=== PATIENT | female | born 1955 | race Caucasian/White ===

== ENCOUNTER → 2016-08-14 | Outpatient (CLI) | payer OTHER ==
[~2016-08-14] MED LIST: ACET-1138 PO; ALBINS/ INH; ALBUAER INH; ALBUAER2 INH; ASCA500 PO; ASCO-63 PO; ASPEC81 PO; ASPI81TA28 PO; ATOR10TA88 PO; CETITAB27 PO; CHOL100027 PO; CLC100 PO; CLIN300C2 PO; CRFL PO; CYAN100020 PO; DOCU100C31 PO; HYDR-5688 PO; MISC4CAP PO; NAPR1TAB9 PO; OXYC-57 PO; PSYL55.43 PO; PSYL58.636 PO; RXC5 PO; SALI0.6510 NAE; SNK PO; SUCR1TAB29 PO; TAMO20TA47 PO; TRIA1SPR4 NAE; TRMCR130WC TOP; VALA500T60 PO; VITA1CAP5 PO; VITA1TAB4 PO
--- NOTE | 2016-08-18 13:48 | MAMMOGRAPHY REPORT ---
BILATERAL DIGITAL SCREENING MAMMOGRAM TOMOSYNTHESIS WITH CAD: 08/14/2016 CLINICAL HISTORY: Routine screening. Patient has no complaints. Sister with breast cancer. TECHNIQUE: Breast tomosynthesis in addition to standard 2D mammography was performed. Current study was also evaluated with a Computer Aided Detection (CAD) system. COMPARISON: Comparison is made to exams dated: 02/01/2014 mammogram - [facility], 03/22/2015 [facility], 12/23/2012 mammogram, 12/19/2011 mammogram, 10/21/2010 mammogram, and 10/19/2009 mammogram - [facility]. BREAST COMPOSITION: There are scattered areas of fibroglandular density in both breasts. FINDINGS: There are possible grouped calcifications seen within the right upper outer quadrant, for which spot magnification views and right XCCL views are recommended for further evaluation. There is architectural distortion seen within the right 12:00 breast which appears stable compared to prio r exams and likely represents post surgical changes. Recommend correlation with surgical history at the time of the diagnostic workup. The remainder of both breasts are stable compared to prior exams, without suspicious masses, calcifi cations, or areas of architectural distortion noted. IMPRESSION: ACR BI-RADS CATEGORY 0: INCOMPLETE EVALUATION: NEED ADDITIONAL IMAGING EVALUATION Right upper outer quadrant calcifications, for which additional imaging evaluation is recommended. At the time of the diagnostic workup, recommend correlation with any surgical history which could ac count for right breast architectural distortion. The patient will be called to schedule an appointment. Approximately 10% of breast cancers are not detected with mammography. A negative mammographic repor t should not delay biopsy if a clinically suggestive mass is present. Juana Bansal M.D. ah/:08/14/2016 16:51:51 Program Professional: Patsy CASTILLO,R, M, [facility] letter sent: Addl Imaging 0 BI-RADS Code: ACR BI-RADS Category 0: Incomplete Evaluation: Need Additional Imaging Evaluation
== END | disposition home or self-care (01) ==
LOC: C.MAMM 12:13
PROVIDERS: ATTEND Internal Medicine
DX: Z12.31 Encounter for screening mammogram for malignant neoplasm of breast (principal); R92.1 Mammographic calcification found on diagnostic imaging of breast

== ENCOUNTER → 2016-09-03 | Outpatient (CLI) | payer OTHER ==
--- NOTE | 2016-09-03 12:32 | MAMMOGRAPHY REPORT ---
UNILATERAL RIGHT DIGITAL DIAGNOSTIC MAMMOGRAM: 09/03/2016 CLINICAL HISTORY: 61-year-old woman called back from screening mammography for a possible cluster of microcalcifications in the right upper outer quadrant. History of prior benign surgical biopsy in the right breast for which a 4 cm scar is visualized along the superior aspect of the right breast a pproximate 11 through 1:00 axes. TECHNIQUE: Spot magnification right CC and ML views were obtained. COMPARISON: Comparison is made to exams dated: 08/14/2016 mammogram, 03/22/2015 mammogram - [facility], 02/01/2014 mammogram - [facility], 12/23/2012 mammogram, 12/19/2011 mammogram, and 10/21/2010 mammogram - [facility]. BREAST COMPOSITION: There are scattered areas of fibroglandular density in the right breast. FINDINGS: There are a few scattered benign-appearing round and coarse calcifications in the visuali zed right breast. However, there is an 8 mm cluster of very faint punctate and amorphous microcalci fications in the upper outer posterior right breast that appears new compared to prior available fern mograms. This is indeterminate, warranting further evaluation with tissue sampling. No obvious ass ociated mass or unexpected architectural distortion. No other suspicious microcalcifications are id entified. There is expected architectural distortion in the 12:00 right breast, which appears simil ar on all available prior mammograms, and is compatible with postsurgical scarring. IMPRESSION: ACR BI-RADS CATEGORY 4B: INTERMEDIATE SUSPICION FOR MALIGNANCY 1. Right breast stereotactic guided biopsy is recommended for an 8 mm cluster of very faint punctat e and amorphous microcalcifications in the upper outer posterior breast. 2. Architectural distortion in the 12:00 right breast correlates with a surgical scar visible on th e skin in the 12:00 right breast and is compatible with postsurgical scarring. No further imaging w orkup is needed regarding this finding. These results and recommendations were discussed with the patient at the time of the exam. She tent atively scheduled the right breast stereotactic biopsy prior to leaving our department. Approximately 10% of breast cancers are not detected with mammography. A negative mammographic repor t should not delay biopsy if a clinically suggestive mass is present. Gretta Mullins M.D. ay/:09/03/2016 10:38:19 Appeals Analyst: Nissa Fabian RT(R)(M), [facility] letter sent: Abnormal 09/17 BI-RADS Code: ACR BI-RADS Category 4B: Intermediate Suspicion For Malignancy
== END | disposition home or self-care (01) ==
LOC: C.MAMM 08:33
PROVIDERS: ATTEND Physician Assistant
DX: R92.0 Mammographic microcalcification found on diagnostic imaging of breast (principal)

== ENCOUNTER → 2016-09-10 | Outpatient (CLI) | payer OTHER ==
[~2016-09-10] MED LIST changes: +ATOR10TA82 PO; -ATOR10TA88 PO; -TAMO20TA47 PO; +TAMO20TA9 PO
--- NOTE | 2016-09-10 13:40 | Discharge Instructions ---
Discharge Instructions Procedure Procedure Date: Sep 10, 2016. Reason for visit: Right Calcs. Discharge Discharge Date: Sep 10, 2016. Discharge Diagnosis: post right breast stereotactic guided biopsy Medications Restart Stopped Medication(s): May restart Aspirin tonight as long as not bleeding through bandages Instructions Activity Recommendations: Additional Limitations (see below) Return to School/Work: no limitations Recommended Home Diet: No Limitations Provider Instructions: ACTIVITY RECOMMENDATIONS: * No lifting, pushing, pulling or exercising the affected side for three days. RETURN TO SCHOOL/WORK: * You may return to work/school after the procedure, but do not perform any strenuous activities for 24 to 48 hours. MEDICATIONS: * Tylenol (two 325 mg) every four to six hours if needed for mild pain (if not allergic to Tylenol). DIET: * Resume previous diet. SPECIAL CARE INSTRUCTIONS: * Keep biopsy site dry for 24 hours. May shower after 24 hours, but do not soak (bathe) incision. * May remove Tegaderm (plastic patch) tomorrow AFTER showering. * Leave the steri-strips on for one week. Allow the steri-strips to fall off by themselves. If not off after one week, you may remove them. You may place a Bandaid crosswise over the strips, if desired. * Apply ice 10 minutes on and 10 minutes off as needed. * Wear a bra at bedtime to sleep more comfortably for 2-3 days. * Your referring physician should have the results after approximately 5 to 7 business days. * Call for unusual bleeding, fever, drainage, etc or if you have any questions call [phone] during normal business hours or after hours call Dr Mullins, . FOLLOW UP VISIT: Follow-up with Referring Physician as scheduled. Allergies Coded Allergies: Astemizole (Verified Allergy, Unknown, 09/19/15) Loratadine (Verified Allergy, Unknown, 10/22/15) Penicillins (Verified Allergy, Unknown, 10/22/15) Sulfa Drugs (Verified Allergy, Unknown, 10/22/15) Sulfamethoxazole (Verified Allergy, Unknown, 10/22/15) Terfenadine (Verified Allergy, Unknown, 09/19/15) Statins (Unverified Adverse Reaction, Unknown, leg cramps, 10/22/15) [place] Recommendations: Call your doctor if: * Temperature above 101 degrees * Pain not relieved by pain medicine ordered * There is increased drainage or redness from any incision * You have any unanswered questions or concerns. Your Doctors Instructions noted above were prepared by provider Gretta Mullins. Patient Signature Section: Patient Instructions Signature Page Tamara Patrick Patient (or Guardian) Signature/Date: I have read and understand the instructions given to me by my caregivers. Caregiver/RN/Doctor Signature/Date: The above-named patient and/or guardian has received patient instructions on this date. + Original Patient Signature Page (only) stays with chart. Please make copy for patient.
--- NOTE | 2016-09-10 15:56 | MAMMOGRAPHY REPORT ---
THIS REPORT HAS BEEN AMENDED. STEREOTACTIC GUIDED BIOPSY RIGHT BREAST: 09/10/2016 CLINICAL HISTORY: Faint indeterminate clustered microcalcifications in the approximate 9:00 posterio r right breast. Patient presented for stereotactic guided biopsy. COMPARISON: Comparison is made to exams dated: 08/14/2016 mammogram, 03/22/2015 mammogram - [facility], 02/01/2014 mammogram - [facility], and 12/23/2012 mammogram - [facility]. PATIENT CONSENT: After explaining the risks, benefits and alternatives of the procedure to the patie nt, informed consent was obtained both verbally and in writing. Specific risks include: Bleeding, i nfection, puncture of adjacent structure, nontarget biopsy, sampling error, metal allergy and medica tion reaction. PROCEDURE DESCRIPTION: A time-out was performed and the right breast was confirmed as the site of bi opsy. The patient was placed prone on the stereotactic biopsy table and the breast was placed in lat eralmedial compression. A cuff turner machine operator image was obtained that demonstrated the clustered microcalcificati ons in question. They are amenable to sterotactic biopsy. Then +15 and -15 stereo pair images wer e obtained. The calcifications were targeted utilizing the coordinates obtained by the computer. Th e skin was prepped with Betadine. 1% Lidocaine with and without epinipherine was administered as loc al anesthesia. A small skin incision was made. Through the incision, the needle was inserted to the depth determined by the computer. 12 samples were obtained using a [employer] 9-gauge vacuum-vidal diego biopsy device. The specimen radiograph demonstrated several maintenance representative microcalcifications, therefore, a metallic marker was placed at the biopsy site. There was no immediate complication. Hem ostasis was achieved after several minutes of manual compression. The samples were sent to [facility] in a single appropriately labeled container. Nearly all of the core tissue samples contained calc ifications and therefore they were not out. Postprocedure CC and ML views of the right breast demonstrate a new dumbbell-shaped metallic biopsy marker and no significant hematoma in the 9:00 posterior breast, at the site of the biopsied cluster ed microcalcifications in question. IMPRESSION: STEREOTACTIC GUIDED BIOPSY Status post right breast stereotactic guided biopsy of a faint clustered microcalcifications in the proximal 9:00 posterior breast, with biopsy marker placed at the site. The patient will receive notification of the biopsy results from her referring physician. Gretta Mullins M.D. ay/:09/10/2016 13:56:32 Package Liner: Nissa METCALF)(Manuel), [facility] AMENDMENT: 09/17/2016 Gretta Mullins M.D. 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 Infiltrative carcinoma is not seen. The ductal carcinoma in situ is estrogen receptor positive progesterone receptor negative. The ductal carcinoma in situ is multifocally dist ributed in this tissue and the aggregate dimension of the multiple foci is 0.5 cm. Pathology result s are concordant with the imaging appearance. However, a contrast-enhanced bilateral breast MRI is recommended prior to definitive treatment becau se of the very faint nature of the microcalcifications, it could be difficult to fully assess extent of disease. Also, there is an area of architectural distortion in the posterior right breast along the posterior nipple line on the CC view, that was thought to project superiorly on the MLO view an d correlate with a area of prior surgery. However an MRI will also be useful to reassess this area and exclude any abnormal enhancement as opposed to nonenhancing fibrotic tissue in this location.
--- NOTE | 2016-09-10 15:56 | MAMMOGRAPHY REPORT ---
UNILATERAL RIGHT DIGITAL DIAGNOSTIC MAMMOGRAM: 09/10/2016 CLINICAL HISTORY: Status post stereotactic guided biopsy of faint clustered microcalcifications in t he lateral posterior right breast. Please refer to the report from right breast stereotactic guided biopsy performed at the same time f or full detail. IMPRESSION: POST PROCEDURE IMAGING FOR MARKER PLACEMENT Please refer to the report from right breast stereotactic guided biopsy performed at the same time f or full detail. Approximately 10% of breast cancers are not detected with mammography. A negative mammographic repor t should not delay biopsy if a clinically suggestive mass is present. Gretta Mullins M.D. ay/:09/10/2016 13:42:17 Environmental Director: Nissa CASTILLO(R)(M), [facility] BI-RADS Code: Post Procedure Imaging For Marker Placement
== END | disposition home or self-care (01) ==
LOC: C.MAMM 12:30
PROVIDERS: ATTEND Physician Assistant
DX: R92.0 Mammographic microcalcification found on diagnostic imaging of breast (principal); D05.81 Other specified type of carcinoma in situ of right breast

== ENCOUNTER 2016-11-15 19:31 | Emergency (ER) | payer OTHER ==
[~2016-11-15] VITALS: Ht 162.6 cm; Wt 80.1 kg
[~2016-11-15 19:31] MED LIST changes: -ALBINS/ INH; -ALBUAER INH; -ASCO-63 PO; -ASPI81TA28 PO; -ATOR10TA82 PO; -CLIN300C2 PO; -CRFL PO; -DOCU100C31 PO; -HYDR-5688 PO; -NAPR1TAB9 PO; -OXYC-57 PO; -PSYL58.636 PO; -SALI0.6510 NAE; -TAMO20TA9 PO; -TRIA1SPR4 NAE; -TRMCR130WC TOP; -VALA500T60 PO; -VITA1TAB4 PO
[2016-11-15 19:39] VITALS: TEMP 36.4; Ht 162.6 cm; Wt 80.1 kg
[2016-11-15] MEDS ORDERED: ONDANSETRON INJ 2 MG/ML 2 ML VIAL IV STA (19:52)
[2016-11-15] MEDS ORDERED: MoRPHine SULFATE 10 MG/ML CARP/VIAL IV STA (19:52)
[2016-11-15] MEDS ORDERED: BUPIVACAINE 0.5 % 5 MG/1 ML MPF 30ML VIAL INFIL ONE (20:00)
[2016-11-15] MEDS ORDERED: XYLOCAINE 1%/SOD BICARB 20 ML VIAL INFIL ONE (20:00)
[2016-11-15] MEDS ORDERED: CLINDAMYCIN IV 900 MG in DEXTROSE 5% ADD-VANTAGE 100ML 100 ML IV ONE (20:00)
[2016-11-15] MEDS ORDERED: DOCU100C31 PO (20:25)
[2016-11-15] MEDS ORDERED: ASPI81TA28 PO (20:26)
[2016-11-15] MEDS ORDERED: PSYL58.636 PO (20:26)
[2016-11-15] MEDS ORDERED: OXYC-57 PO (20:26)
[2016-11-15] MEDS ORDERED: VITA1TAB4 PO (20:26)
[2016-11-15] MEDS ORDERED: CLIN300C2 PO (21:31)
[2016-11-15] MEDS ORDERED: HYDR-5688 PO (21:36)
--- NOTE | 2016-11-15 21:37 | EMERGENCY ROOM VISIT NOTE ---
ED Visit Note First contact with patient: 19:42 CHIEF COMPLAINT: Finger injury HISTORY OF PRESENT ILLNESS: This 61-year-old female patient presents to the emergency department ambulatory after injuring the right fourth finger a few hours ago. The patient states that she caught the finger caught between the boat and pier. The patient rates the pain as sharp and 10/10. The patient has full range of motion of the finger. No numbness or tingling. There is a laceration to the tip of the finger. The patient has not had previous fracture to this finger. The patient has taken no medication for the pain. She was seen at [facility] and sent here. REVIEW OF SYSTEMS: A 6 system review of systems was completed with positives and pertinent negatives in the HPI. ALLERGIES: See EMR MEDICATIONS: See med list, reviewed with patient PMH: Recent lumpectomy secondary to breast cancer SOCIAL HISTORY: The patient lives locally with family. PHYSICAL EXAM: Vital Signs: Reviewed Nurse's notes, vital signs stable. GENERAL : This is a 61-year-old female, in no acute distress, but appears to be in pain , well-developed, well-nourished. MUSCULOSKELETAL: There is a 2.5 cm curved laceration to the finger pad of the right fourth finger. This keeps apart with pressure. There is mild active bleeding. Capillary refill within 2 seconds. Full range of motion of the finger. No tenderness of the remaining fingers or hand. Full range of motion of the wrist. NEURO: Alert and oriented to person, place, and time. Normal sensation to light and sharp touch. RADIOGRAPHIC FINDINGS: X-rays by [facility] reviewed by myself and reveal a small distal tuft fracture of the right fourth finger. PROCEDURE: Verbal consent was obtained to perform the procedure. Using sterile technique the wound was cleaned with Betadine. The area was sterilely draped. 6 ml of a 1-1 solution of 1% buffered lidocaine and 0.5% Marcaine was used to perform a digital block to anesthetize the finger. Once the patient was anesthetized, the wound was copiously irrigated under pressure with sterile saline. The wound was explored and there were no deep structures injured such as tendons, bone, or significant blood vessels. The laceration was repaired using 7 simple interrupted 5-0 nylon sutures with the wound edges being well approximated. The patient tolerated the procedure well. Hemostasis was achieved. The area was cleaned with sterile saline and dressed with bacitracin ointment and bandage. EMERGENCY DEPARTMENT COURSE: I examined the patient. X-rays performed at [facility] were reviewed. IV access was obtained and the patient was given 6 mg morphine IV. She was reevaluated and felt much better. Laceration repair was performed as noted in the procedure section. She was given IV clindamycin and will be placed on clindamycin at home. I discussed the case with Dr. Tsang, who recommended follow-up with orthopedics in the office this week. The patient was placed in a metal cage splint. Conservative measures were discussed. She verbalized understanding of my assessment and treatment plan and was discharged home in good condition. DIAGNOSIS: Finger laceration, distal tuft fracture Problem List Medical Problems: (1) Asthma, mild persistent Status: Chronic (2) Deviated nasal septum Status: Chronic (3) Dyslipidemia Status: Chronic (4) Fibromyalgia Status: Chronic (5) GERD (gastroesophageal reflux disease) Status: Chronic (6) IBS (irritable bowel syndrome) Status: Chronic (7) Non-allergic rhinitis Status: Chronic (8) MARTY (obstructive sleep apnea) Status: Chronic (9) Urge incontinence Status: Chronic Surgical Problems: (1) H/O exploratory laparotomy Permanent Comment: 2008 Status: Resolved (2) H/O: knee surgery Permanent Comment: L knee; remove med/lateral cartilage performed by 2010 Status: Resolved (3) History of appendectomy Status: Resolved (4) History of section Status: Resolved (5) History of cholecystectomy Status: Resolved (6) History of hysterectomy Permanent Comment: 1 ovary remains; 1994 Status: Resolved (7) History of tonsillectomy and adenoidectomy Status: Resolved Current/Historical Medications Scheduled Aspirin (Aspirin Ec), 81 MG PO DAILY Cholecalciferol (Vitamin D 1000 Unit), 1,000 INTER.UNIT PO QAM Clindamycin Hcl (Cleocin), 300 MG PO QID Cyanocobalamin (Vitamin B12), 2,000 MCG PO DAILY Docusate Sodium (Docusate Sodium), 200 MG PO QAM Probiotic Product (Align), 4 MG PO QAM Psyllium (Metamucil Fiber), 1 PKT PEG Q2D Vitamin E (Vitamin E), 400 INTER.UNIT PO DAILY Scheduled PRN Hydrocodone/Acetaminophen 5MG/325MG (Udell 5MG/325MG), 1-2 TABLET PO Q4H PRN for Pain Oxycodone/Acetaminophen 5MG/325MG (Percocet 5MG/325MG), 1 TABLET PO Q4H PRN for Pain Allergies Coded Allergies: Astemizole (Verified Allergy, Unknown, 09/19/15) Loratadine (Verified Allergy, Unknown, 10/22/15) Penicillins (Verified Allergy, Unknown, 10/22/15) Sulfa Drugs (Verified Allergy, Unknown, 10/22/15) Sulfamethoxazole (Verified Allergy, Unknown, 10/22/15) Terfenadine (Verified Allergy, Unknown, 09/19/15) Statins (Unverified Adverse Reaction, Unknown, leg cramps, 10/22/15) Vital Signs Date Time Temp Pulse Resp B/P (MAP) Pulse Ox O2 Delivery O2 Flow Rate FiO2 11/15/16 21:51 69 16 126/87 98 11/15/16 19:39 36.4 70 18 161/88 99 Room Air Medications Administered Medications (Trade) Dose Ordered Sig/Viri Route Start Time Stop Time Status Last Admin Dose Admin Clindamycin Phosphate 900 mg/ Dextrose 106 ml @ 100 mls/hr ONE ONCE IV 11/15/16 20:00 11/15/16 21:03 DC 11/15/16 20:15 100 MLS/HR Morphine Sulfate (MoRPHine SULFATE INJ) 6 mg NOW STAT IV 11/15/16 19:52 11/15/16 19:55 DC 11/15/16 20:15 6 MG Ondansetron HCl (Zofran Inj) 4 mg NOW STAT IV 11/15/16 19:52 11/15/16 19:55 DC 11/15/16 20:15 4 MG Departure Information Impression Primary Impression: Finger laceration Additional Impression: Open fracture of distal phalangeal tuft Dispostion Home / Self-Care Condition GOOD Prescriptions Hydrocodone/Acetaminophen 5MG/325MG (Udell 5MG/325MG) Tab 1-2 TABLET PO Q4H Y for Pain, #10 TAB For Initial Treatment Prov: Lisa Zavala PA-C 11/15/16 Clindamycin Hcl (CLEOCIN) 300 Mg Cap 300 MG PO QID for 7 Days, #28 CAP Prov: Lisa Zavala PA-C 11/15/16 Referrals Tressa Arenas (PCP) Angelo Tsang D.O. Patient Instructions My [facility] Additional Instructions For pain control, you can use the following [id number] medicines (if >12 yo): - Regular strength (325mg/tab) Tylenol (acetaminophen) 2 tabs every 4-6 hours as needed. Do not exceed 12 tablets in a 24 hour period. Avoid taking more than 4 grams (4000 mg) of Tylenol per day. This includes any other sources of acetaminophen you may take on a regular basis. - Regular strength (200 mg/tab) Advil (ibuprofen) 1-2 tabs every 4-6 hours as needed. Do not exceed a dose of 3200 mg per day. You have been prescribed Udell to be used for pain control. Take 1-2 tablets every 4-6 hours as needed for pain. This is a narcotic medication. You cannot drive or consume alcohol while on this medicine. This medicine should only be used for pain that cannot be controlled with [id number] pain medicines. You were prescribed clindamycin to be taken 4 times daily. This is an antibiotic. All antibiotics have the potential to cause diarrhea. Stop this medication and contact a medical provider if you were to develop any significant adverse side effects including: wheezing, shortness of breath, passing out, vomiting, or a diffuse rash. Always take antibiotics as directed and COMPLETE the ENTIRE course regardless of the improvement of your symptoms. Proper wound care is essential for adequate wound healing and infection prevention. You can shower and clean the wound with soap and water. Do not scour over the wound, pat dry with a towel. Do not submerse the wound (i.e. bathe or dish wash) until the wound has fully healed. You can use an antibiotic ointment with a dressing over the wound for the next 3-4 days. After this time you may leave the wound dry and open to the air. Follow-up with orthopedics. Call them for appointment. Return to the emergency department with any worsening redness, or swelling swelling or signs of infection. Problem Qualifiers Primary Impression: Finger laceration Encounter type: initial encounter Finger: ring finger Damage to nail status : without damage Foreign body presence: without foreign body Laterality: right Qualified Codes: S61.214A - Laceration without foreign body of right ring finger without damage to nail, initial encounter
[2016-11-15 21:51] VITALS: BP 126/87; PULSE 69; O2SAT 98
[2017-01-01] MEDS ORDERED: CRFL PO (09:45)
[2017-01-01] MEDS ORDERED: ALBINS/ INH (09:45)
[2017-01-01] MEDS ORDERED: TRMCR130WC TOP (09:45)
[2017-01-01] MEDS ORDERED: NAPR1TAB9 PO (09:45)
[2017-01-01] MEDS ORDERED: ASCO-63 PO (09:45)
[2017-01-01] MEDS ORDERED: SALI0.6510 NAE (09:45)
[2017-01-01] MEDS ORDERED: ALBUAER INH (09:45)
[2017-01-01] MEDS ORDERED: VALA500T60 PO (09:45)
[2017-01-01] MEDS ORDERED: TRIA1SPR4 NAE (09:45)
[2017-01-01] MEDS ORDERED: CETITAB27 PO (09:45)
[2017-03-11] MEDS ORDERED: ATOR10TA82 PO (14:42)
[2017-03-11] MEDS ORDERED: TAMO20TA9 PO (14:42)
== END 2016-11-15 20:45 | disposition home or self-care (01) ==
LOC: C.EDB 19:32 → C.EDD 20:45
DX: S62.664B Nondisplaced fracture of distal phalanx of right ring finger, initial encounter for open fracture (principal); S61.214A Laceration without foreign body of right ring finger without damage to nail, initial encounter; W23.0XXA Caught, crushed, jammed, or pinched between moving objects, initial encounter; Y92.89 Other specified places as the place of occurrence of the external cause; Z85.3 Personal history of malignant neoplasm of breast; J45.909 Unspecified asthma, uncomplicated; E78.5 Hyperlipidemia, unspecified; M79.7 Fibromyalgia; K21.9 Gastro-esophageal reflux disease without esophagitis; K58.9 Irritable bowel syndrome, unspecified; G47.33 Obstructive sleep apnea (adult) (pediatric); Z79.82 Long term (current) use of aspirin; Z79.899 Other long term (current) drug therapy

== ENCOUNTER → 2017-08-25 | Outpatient (CLI) | payer OTHER ==
[~2017-08-25] MED LIST changes: -ACET-1138 PO; +ALBINS/ INH; +ALBUAER INH; -ALBUAER2 INH; -ASCA500 PO; +ASCO-63 PO; -ASPEC81 PO; +ASPI81TA28 PO; +ATOR10TA82 PO; -CLC100 PO; +CRFL PO; +DOCU100C31 PO; +NAPR1TAB9 PO; +PRVC/40; -PSYL55.43 PO; +PSYL58.636 PO; -RXC5 PO; +SALI0.6510 NAE; -SNK PO; -SUCR1TAB29 PO; +TAMO20TA9 PO; +TRIA1SPR4 NAE; +TRMCR130WC TOP; +VALA500T60 PO; -VITA1CAP5 PO; +VITA400C3 PO
[2017-08-25 13:22] VITALS: BP 113/63; PULSE 54; TEMP 36.4; O2SAT 98
--- NOTE | 2017-08-25 15:43 | Radiation Oncology Follow-Up ---
Radiation Oncology Follow-Up Date of Visit Aug 25, 2017. Reason For Visit Six-month follow-up Radiation Completion Date 02/03/17 Diagnosis (1) Intraductal cancer of right breast Status: Resolved Onset Date: 09/10/2016 Stage: 0 Permanent Comment: Abnormal right breast mammogram Status post stereotactic biopsy revealing DCIS grade 2 Estrogen receptor positive and progesterone receptor negative Status post needle localization lumpectomy 11/12/2016 Status post reexcision 12/15/2016 Stage pTis pNX Status post completion of radiation therapy 02/03/2017. She received 3850 cGy utilizing accelerated partial breast irradiation. Last Edited By: Padmini Cárdenas on Feb 11, 2017 11:35 History of Present Illness Ms. Patrick has a history of breast cancer in her family. Her sister was diagnosed with a rectal cancer 4 years ago and in June of this year developed respiratory symptoms. 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 A PET scan also showed evidence of disease in the breast and she was found to have a breast cancer. The patient was scheduled for a screening mammogram last year in March 2016 but this was delayed until August 2016.. On 08/14/2016 bilateral digital screening mammogram revealed possible grouped calcifications seen within the right upper outer quadrant. Spot magnification views were recommended for further evaluation. On 09/03/2016 patient underwent a unilateral right digital diagnostic mammogram. This revealed an 8 mm cluster of very faint punctate and amorphous microcalcifications in the upper outer posterior right breast that appear to be new compared to her prior available mammograms. This was indeterminate warranting further evaluation and tissue sampling. No obvious associated mass around his expected architectural distortion was noted. No other suspicious microcalcifications were identified. There was expected architectural distortion in the 12 o'clock position of the right breast which appears similar to prior mammograms and is compatible with postsurgical scarring. The patient had undergone a needle localization biopsy of the right breast on 10/21/2004. This showed benign changes with no evidence of malignancy. Specimen #[id number]. On 09/10/2016 the patient underwent a stereotactic guided right lateral breast biopsy. In aggregate multiple foci of ductal carcinoma in situ, intermediate grade was noted measuring 0.5 cm in aggregate dimension. This was consistent with a DCIS intermediate grade with necrosis present. Estrogen receptors were positive, progesterone receptors were negative. Case: [id number]. Patient was seen by Dr. Mirella Acevedo to discuss surgical treatment options. She recommended rest MRI to assess the extent of the disease. This was performed on 09/29/2016. This showed a 2 cm area of linear enhancement extending posteriorly to the biopsy clip for a length of 2 cm. A repeat MRI was suggested to follow-up bilateral nonspecific foci. An addendum was added on 11/07/2016 which revealed a MRI BI-RADS Category 6 of the left breast for the known carcinoma and an MRI BI-RADS Category 3 of the right breast probably benign. The patient agreed to proceed with a breast conserving therapy. The patient was scheduled for a right breast needle localization lumpectomy on 11/12. This confirmed residual ductal carcinoma in situ with nuclear grade 2 cribriform and solid type measuring 4 mm. The disease was multifocal. The surgical margins were negative with the inferior margin being the closest margin at 1 mm. There was no necrosis. There were associated microcalcifications. Estrogen receptors were +100% with strong nuclear staining and progesterone receptors were positive with 30% weak nuclear staining. The patient was scheduled for a reexcision of the close margin that was performed on 12/15/2016. Tissue from the inferior margin showed residual ductal carcinoma in situ with nuclear grade 2 solid type area at the final margin was negative with the nearest margin 2 mm. Patient was seen by Dr. Zachery Rosenthal to discuss the role of adjuvant systemic therapy. He noted that the patient had been on estrogen replacement therapy for about a decade following a hysterectomy in the for endometriosis and menorrhagia. He discussed adjuvant radiation to be followed by consideration of adjuvant hormonal therapy. He therefore suggested consideration of an AI with the possibility of switching to tamoxifen if she experienced excessive toxicity. With a recent history of breast cancer in her sister and a maternal aunt with breast cancer diagnosed in her 40s she was felt to be a candidate for genetic testing and has been referred to the genetic counseling at [facility] with an appointment in February. We were therefore asked to see the patient in referral to discuss with her the role of adjuvant radiation. She underwent a CT simulation and was found to be a candidate for accelerated partial breast treatment. This was completed on 02/03/2017. She received 3850 cGy Interim History She had been placed on tamoxifen. She recently stopped the medication on her own. She stated that she was having dizziness. She was also having problems with ear discomfort. She was seen by ENT. After stopping the medication the dizziness has resolved. She also was having a discomfort in her right central arm that radiated to the middle of the upper arm. There was an area of swelling. This was tender to touch. The discomfort radiated towards the axilla. She is up-to-date on mammography. Allergies Coded Allergies: Astemizole (Verified Allergy, Unknown, 09/19/15) Cefuroxime (Verified Allergy, Unknown, Unknown, 01/01/17) Colestipol (Verified Allergy, Unknown, Leg cramps, 01/01/17) Fexofenadine (Verified Allergy, Unknown, Tachycardia, 01/01/17) Levofloxacin (Verified Allergy, Unknown, Jittery, 01/01/17) Loratadine (Verified Allergy, Unknown, 10/22/15) Niacin (Verified Allergy, Unknown, Leg cramps, 01/01/17) Penicillins (Verified Allergy, Unknown, edema of face, tongue, and lips. Rash, 01/01/17) Sulfa Drugs (Verified Allergy, Unknown, Rash, 01/01/17) Sulfamethoxazole (Verified Allergy, Unknown, Rash, 01/01/17) Terfenadine (Verified Allergy, Unknown, 09/19/15) Statins (Unverified Adverse Reaction, Unknown, leg cramps, 10/22/15) Home Medications Scheduled Ascorbic Acid (Vitamin C), 1 TAB PO DAILY Aspirin (Aspirin Ec), 81 MG PO DAILY Cetirizine/Pseudoephedrine (Zyrtec-D Er 5MG/120MG), 1 TAB PO DAILY Cholecalciferol (Vitamin D 1000 Unit), 1,000 INTER.UNIT PO QAM Cyanocobalamin (Vitamin B12), 500 MCG PO DAILY Docusate Sodium (Docusate Sodium), 2 CAP PO DAILY Pravastatin Sod (Pravastatin Sodium), 10 MG mon-FRi Probiotic Product (Align), 4 MG PO QAM Psyllium (Metamucil Fiber), 1 CAP PO Q2D Triamcinolone Acetonide (Nasal (Nasacort Allergy 24Hr), 1 SPRAY PHILIPPE DAILY Valacyclovir (Valtrex), 2 TABS PO DIRECTED Vitamin E (Vitamin E 400 Iu), 400 INTER.UNIT PO DAILY Scheduled PRN Albuterol Sulf (Proventil 0.083% 2.5MG/3ML), 2.5 MG INH Q4 PRN for SOB/Wheezing Albuterol Sulfate (Proventil Hfa), 2 PUFFS INH Q4 PRN for SOB/Wheezing Naproxen (Aleve), 220 MG PO BID PRN for Moderate Pain Saline ([employer] Nasal [place]), 1 SPRAY PHILIPPE BID PRN for DRYNESS Triamcinolone Acet (Aristocort 0.1%), 1 APPLN TOP BID PRN for Affected Skin Folds Review of Systems Gastrointestinal: Symptoms: WNL GI Comments: no prob at present had constipation while on tamoxifen Oral: Symptoms: No Problems Respiratory: Symptoms: Dry Cough, SOB With Exertion Other Respiratory: patient noted she experienced wheezing on 08/22/17 no prob at present Urinary: Symptoms: WNL Skin: Other Skin Symptoms: occ pruritis right breast uses natural care gel which helps Breast: Right Upper Arm Measurement: 33.6 Right Mid Arm Measurement: 24.6 Right Wrist Measurement: 15.4 Left Upper Arm Measurement: 31.2 Left Mid Arm Measurement: 23.5 Left Wrist Measurement: 14.8 Arm Dominence: Right Patient Cosmetic Evaluation: Good Staff Cosmetic Evalaluation: Good Physical Exam Vital Signs Date Time Temp Pulse Resp B/P (MAP) Pulse Ox O2 Delivery O2 Flow Rate FiO2 08/25/17 13:22 36.4 54 16 113/63 98 Fatigue: None General Appearance: no apparent distress Eyes: normal inspection, EOMI ENT: normal ENT inspection, hearing grossly normal Neck: no adenopathy, thyroid normal Respiratory/Chest: lungs clear, no respiratory distress, no accessory muscle use Breast: Breast examination reveals well-healed incision of the right breast. There are no masses or tenderness and no axillary adenopathy. She has no skin retractions or nipple changes. Using the Esparto score of cosmesis she has an excellent outcome. The left breast showed no masses or tenderness and no axillary adenopathy. Cardiovascular: regular rate, rhythm, no gallop, no murmur Extremities: + pertinent finding (There is tenderness to palpation of the right antecubital space. She also has tenderness of the upper inner aspect of the right arm. There is no erythema. ) Neurologic/Psychiatric: no motor/sensory deficits, alert, normal mood/affect Skin: warm/dry Pain Management Patient Reports Pain: Yes Side: Right Patient Preferred Pain Scale: 0 - 10 Initial Pain Intensity: 3.0 Pain Management Plan Discomfort is in the upper inner portion of the right arm. Laboratory Laboratory Results: not applicable Pathology Pathology Results: and pertinent findings noted in HPI Imaging Imaging Studies: and pertinent findings noted in HPI, pending (A stat venous Doppler has been ordered for the right upper extremity.) Imaging Comments Patient: IVELISSE PATRICK [facility] Rec: [id number] Address1: [address] Address2: Acct ID: [id number] Date: 1955 Sex: F Ref Phy: Tressa ArenasN.PNile Att Phy: Jessica Medina PA-C Jessica Phy: Tressa Arenas Inter Phy: Gretta Mullins MD [facility] Zip: [place] [id number] SC: [place] Report #: [id number] Forest Fire Prevention Manager: JENNYFER Diagnosis: RIGHT CALCS Service Date: 09/10/16 MNE: [id number] Ordering Dr: Jessica Medina PA-C CC: Jessica Medina PA-C CONF: DICTATED BY: Gretta Mullins MD MAMMOGRAPHY REPORT UNILATERAL RIGHT DIGITAL DIAGNOSTIC MAMMOGRAM: 09/10/2016 CLINICAL HISTORY: Status post stereotactic guided biopsy of faint clustered microcalcifications in the lateral posterior right breast. Please refer to the report from right breast stereotactic guided biopsy performed at the same time for full detail. IMPRESSION: POST PROCEDURE IMAGING FOR MARKER PLACEMENT Please refer to the report from right breast stereotactic guided biopsy performed at the same time for full detail. Approximately 10% of breast cancers are not detected with mammography. A negative mammographic report should not delay biopsy if a clinically suggestive mass is present. Gretta Mullins M.D. ay/:09/10/2016 13:42:17 Grout Machine Operator: Nissa METCALF)(Manuel), [facility] BI-RADS Code: Post Procedure Imaging For Marker Placement Dictated by: Gretta Mullins MD Signed by: Gretta Mullins MD Assessment & Plan Plan: Patient noted that the discomfort and swelling in her arm improved when she stopped the tamoxifen. There is concern for possible DVT or superficial phlebitis. A venous Doppler was ordered. She is going to call Dr. Rosenthal's office and discussed with him her decision on stopping the medication. She will continue with scheduled mammography. She will be advised as to the results of the ultrasound and will be treated accordingly. She will otherwise return to our office in 1 year. We discussed warm compresses to the upper inner arm on the right. Total Time In Follow-Up I spent 20 minutes speaking to the patient in performing examination. I spent 15 minutes reviewing information on completing this note. AK Copy To Curtis Mccartney M.D.; Zachery Rosenthal MD; Tressa Arenas
== END | disposition home or self-care (01) ==
LOC: C.ONC 13:14
PROVIDERS: ATTEND Physician Assistant Medical
DX: Z08 Encounter for follow-up examination after completed treatment for malignant neoplasm (principal); Z92.3 Personal history of irradiation; Z86.000 Personal history of in-situ neoplasm of breast

== ENCOUNTER → 2017-08-25 | Outpatient (CLI) | payer OTHER ==
--- NOTE | 2017-08-25 16:35 | DIAGNOSTIC IMAGING REPORT ---
RIGHT UPPER EXTREMITY VENOUS DOPPLER ULTRASOUND CLINICAL HISTORY: Right upper arm pain and swelling. COMPARISON STUDY: No previous studies for comparison. FINDINGS: The right internal jugular, subclavian, cephalic, axillary, brachial, basilic, radial and ulnar veins are patent. IMPRESSION: No deep venous thrombus within the right upper extremity. Electronically signed by: Hang Tomlin M.D. 08/25/2017 4:34 PM Dictated Date/Time: 08/25/2017 4:34 PM
== END | disposition home or self-care (01) ==
LOC: C.ULTR 14:55
PROVIDERS: ATTEND Physician Assistant Medical
DX: R60.9 Edema, unspecified (principal); M79.601 Pain in right arm

== ENCOUNTER 2018-12-08 10:17 | Inpatient (IN) ==
--- NOTE | 2018-11-30 09:40 | PAT Medication Instructions ---
Medication Instructions Date of Service November 30, 2018 Home Medications albuterol sulfate 2.5 mg INHALATION Q4H PRN albuterol sulfate [Ventolin HFA] 2 puff INHALATION Q4H PRN calcium carbonate [Tums] 200 mg PO DAILY PRN cholecalciferol (vitamin D3) [Vitamin D3] 2,000 unit PO QDL docusate sodium 100 mg PO TID sodium chloride [[place] Nasal] 1 spray INTRANASAL UD PRN valacyclovir 2,000 mg PO DAILY PRN omeprazole 20 mg PO BID psyllium husk [Metamucil] 0.52 g PO Q2D montelukast [Singulair] 10 mg PO HS azelastine-fluticasone 1 spray INTRANASAL BID dicyclomine 10 mg PO TID PRN ezetimibe [Zetia] 10 mg PO QAM triamcinolone acetonide [Nasacort] 1 spray INTRANASAL QPM Bifidobacterium infantis [Align] 4 mg PO QAM cyanocobalamin (vitamin B-12) [Vitamin B-12] 1,000 mcg PO QDL DO NOT take the morning of surgery calcium carbonate [Tums] 200 mg PO DAILY PRN cholecalciferol (vitamin D3) [Vitamin D3] 2,000 unit PO QDL docusate sodium 100 mg PO TID psyllium husk [Metamucil] 0.52 g PO Q2D dicyclomine 10 mg PO TID PRN Bifidobacterium infantis [Align] 4 mg PO QAM cyanocobalamin (vitamin B-12) [Vitamin B-12] 1,000 mcg PO QDL Take morning of surgery With a small sip of water, OTHERWISE NOTHING TO EAT OR DRINK AFTER MIDNIGHT: albuterol sulfate 2.5 mg INHALATION Q4H PRN (if needed) albuterol sulfate [Ventolin HFA] 2 puff INHALATION Q4H PRN (if needed, and bring with you to the hospital) valacyclovir 2,000 mg PO DAILY PRN (if needed) omeprazole 20 mg PO BID azelastine-fluticasone 1 spray INTRANASAL BID ezetimibe [Zetia] 10 mg PO QAM Take evening before surgery albuterol sulfate 2.5 mg INHALATION Q4H PRN (if needed) albuterol sulfate [Ventolin HFA] 2 puff INHALATION Q4H PRN (if needed) calcium carbonate [Tums] 200 mg PO DAILY PRN (if needed) docusate sodium 100 mg PO TID sodium chloride [[place] Nasal] 1 spray INTRANASAL UD PRN (if needed) valacyclovir 2,000 mg PO DAILY PRN (if needed) omeprazole 20 mg PO BID psyllium husk [Metamucil] 0.52 g PO Q2D montelukast [Singulair] 10 mg PO HS azelastine-fluticasone 1 spray INTRANASAL BID dicyclomine 10 mg PO TID PRN (if needed) triamcinolone acetonide [Nasacort] 1 spray INTRANASAL QPM Other Notes If you have any questions please call us at [phone] or [phone] or [phone] or [phone]
--- NOTE | 2018-11-30 09:58 | Anesthesiology Consultation ---
Date of Service November 30, 2018 Assessment & Plan (1) Encounter for pre-operative examination: Chart Review Chart Review: Acceptable Risk for Surgery and Patient seen in Pre Admission Testing Teaching & Discussion Instructed NPO after midnight before surgery, except medications with 15 cc of water. Medication instructions provided according to the PAT guidelines. History Surgery Operation Date: 12/08/18 11:50 Proposed Procedures p Abdominal Scar Revision - Karis Conroy MD Height/Weight Height: 5 ft 4 in Weight: 81.1 kg Allergies Allergy/AdvReac Type Severity Reaction Status Date / Time Penicillins Allergy Severe edema of Verified 10/29/18 06:29 face, tongue, and lips. Rash colestipol Allergy Intermediate Leg cramps Verified 10/29/18 06:29 fexofenadine Allergy Intermediate Tachycardia Verified 10/29/18 06:29 niacin Allergy Intermediate Leg cramps Verified 10/29/18 06:29 terfenadine Allergy Intermediate JITTERY Verified 10/29/18 06:29 astemizole Allergy Mild JITTERY Verified 10/29/18 06:29 levofloxacin Allergy Mild Jittery Verified 10/29/18 06:29 loratadine Allergy Mild JITTERY Verified 10/29/18 06:29 Sulfa (Sulfonamide Allergy Mild Rash Verified 10/29/18 06:29 Antibiotics) sulfamethoxazole Allergy Mild Rash Verified 10/29/18 06:29 cefuroxime Allergy Unknown CAN'T Verified 10/29/18 06:29 REMEMBER Naqolyy-Udd-Zkh Reductase AdvReac Unknown leg cramps Verified 10/29/18 06:29 Inhibitor Medications Home Medications Medication Instructions Recorded Confirmed Last Taken albuterol sulfate 2.5 mg INHALATION Q4H PRN 05/30/18 11/24/18 05/30/18 albuterol sulfate [Ventolin HFA] 2 puff INHALATION Q4H PRN 05/30/18 11/24/18 05/31/18 calcium carbonate [Tums] 200 mg PO DAILY PRN 05/30/18 11/24/18 08/10/18 cholecalciferol (vitamin D3) 2,000 unit PO QDL 05/30/18 11/24/18 10/27/18 [Vitamin D3] docusate sodium 100 mg PO TID 05/30/18 11/24/18 10/27/18 sodium chloride [[place] Nasal] 1 spray INTRANASAL UD PRN 05/30/18 11/24/18 05/30/18 valacyclovir 2,000 mg PO DAILY PRN 05/30/18 11/24/18 10/25/18 omeprazole 20 mg PO BID 08/03/18 11/24/18 10/29/18 05:30 psyllium husk [Metamucil] 0.52 g PO Q2D 08/03/18 11/24/18 08/10/18 montelukast [Singulair] 10 mg PO HS 08/11/18 11/24/18 10/25/18 azelastine-fluticasone 1 spray INTRANASAL BID 10/22/18 11/24/18 10/28/18 dicyclomine 10 mg PO TID PRN 10/22/18 11/24/18 10/28/18 ezetimibe [Zetia] 10 mg PO QAM 10/22/18 11/24/18 10/27/18 triamcinolone acetonide [Nasacort] 1 spray INTRANASAL QPM 10/22/18 11/24/18 10/28/18 Bifidobacterium infantis [Align] 4 mg PO QAM 11/24/18 11/24/18 Unknown cyanocobalamin (vitamin B-12) 1,000 mcg PO QDL 11/24/18 11/24/18 Unknown [Vitamin B-12] Past Medical History Medical History IBS (irritable bowel syndrome) (Chronic) Fibromyalgia (Chronic) GERD (gastroesophageal reflux disease) (Chronic) Asthma, mild persistent (Chronic) last used PRN inh 06/2018 MARTY (obstructive sleep apnea) (Chronic) no device, was never prescribed a CPAP, was told not severe enough. Bradycardia asymptomatic. Environmental allergies Hiatal hernia History of kidney stones Hx of breast cancer RIGHT, s/p lumpectomy x 2 + XRT. 2017 Hyperlipidemia Pre-diabetes Temporomandibular joint disorder Jaw has never locked. Tinnitus Exercise / Class Metabolic Activity II 4-5 Yardwork/Stairs/Walk up hill (Denies CP or SOB with stairs) Past Family History Family History Mother Family history of diabetes mellitus Other Diabetes Heart disease Past Surgical History Surgical History History of appendectomy (Resolved) History of cholecystectomy (Resolved) History of section (Resolved) X2 H/O: knee surgery (Resolved) "L knee; remove med/lateral cartilage performed by 2010 " H/O laparoscopy ROLLED SEAT TRIMMER/adhesions H/O rectal sphincterotomy History of anesthesia reaction urinary retention requiring catheterization and spinal headaches after epidurals History of ankle surgery RIGHT History of breast biopsy History of colonoscopy History of esophagogastroduodenoscopy (EGD) History of hysterectomy with unilateral oophorectomy History of lumpectomy of right breast History of tonsillectomy and adenoidectomy History of total left knee replacement (TKR) History of tubal ligation Hx of right knee surgery Past Anesthesia History No Hx of Anesthesia Complications (other than urinary retention and spinal heada jerome) and No Family Hx of Anesthesia Complications History of PONV No Hx of PONV and No Hx of Motion Sickness Social History Smoking Status: Never smoker Do You Dip or Chew Tobacco: No Hx Alcohol Use: No Hx Substance Use: No substance use type: does not use Review of Systems Pt denies any recent chest pain, shortness of breath, palpitations, cough, fever or URI. Physical Exam Vital Signs BP: 147/85 (pt reports this is high for her but she is rather anxious today) P: 52bpm SPO2: 96% RA T: 98.1 F R: 16 ENMT Mouth: + dental restorations (upper R implant); no chipped teeth and no loose teeth Thyromental Distance: < 3.5 Finger Breadths (2) Mallampati Class: I Neck + shortened thyromental distance; neck extension not limited Respiratory normal respiratory effort Auscultation: lungs clear to auscultation bilaterally Cardiovascular Rate/Rhythm: regular rhythm and + bradycardic Heart Sounds: no murmur Testing Laboratory Results 11/30/18 09:58 11/30/18 11:14 PT 9.7 Seconds (9.0-12.0) 11/30/18 09:58 INR 0.9 (0.9-1.1) 11/30/18 09:58 APTT 24.0 Seconds (21.0-31.0) 11/30/18 09:58 Electrocardiogram Date: 05/30/18 Findings: + NSR @ (66)
[2018-11-30 11:35] LABS: Basophils # (auto) 0.11 K/uL (0-0.2); Basophils % (auto) 1.9 %; Eosinophils # (auto) 0.25 K/uL (0-0.5); Eosinophils % (auto) 4.4 %; Hematocrit (blood only) 40.9 % (37-47); Hemoglobin 14.2 g/dL (12.0-16.0); Immature Granulocytes # (auto) 0.01 K/uL (0.00-0.02); Immature Granulocytes % (auto) 0.2 %; Lymphocytes % (auto) 36.9 %; Mean Corpuscular Hgb Conc 34.7 g/dL (32-36); Mean Corpuscular Volume 91.9 fL (80-100); Mean Platelet Volume 9.8 fL (7.4-10.4); Monocytes # (auto) 0.35 K/uL (0.11-0.59); Monocytes % (auto) 6.2 %; Neutrophils # (auto) 2.87 K/uL (1.4-6.5); Neutrophils % (auto) 50.4 %; Platelet Count 277 K/uL (130-400); RDW Coefficient of Variation 12.6 % (11.5-14.5); RDW Standard Deviation 42.6 fL (36.4-46.3); Red Blood Count 4.45 M/uL (4.2-5.4); White Blood Count 5.69 K/uL (4.8-10.8)
[2018-11-30 11:49] LABS: INR 0.9 (0.9-1.1); Partial Thromboplastin Ratio 0.9; Prothrombin Time 9.7 Seconds (9.0-12.0)
[2018-11-30 12:01] LABS: BUN Creatinine Ratio 16.5 (10-20); Creatinine Clr Calc Pharmacy 83.5 ml/min; Est GFR (Non-African American) 89.8; Potassium 4.2 mmol/L (3.5-5.1)
[~2018-12-08 10:17] MED LIST changes: -ALBINS/ INH; -ALBUAER INH; -ASCO-63 PO; -ASPI81TA28 PO; -ATOR10TA82 PO; -CETITAB27 PO; -CHOL100027 PO; +CLINDAMYCIN 600 MG/54 ML BAG IV SCH; -CRFL PO; -CYAN100020 PO; -DOCU100C31 PO; +LACTATED RINGER'S 1,000 ML IV SCH; -MISC4CAP PO; -NAPR1TAB9 PO; -PRVC/40; -PSYL58.636 PO; -SALI0.6510 NAE; -TAMO20TA9 PO; -TRIA1SPR4 NAE; -TRMCR130WC TOP; -VALA500T60 PO; -VITA400C3 PO
[2018-12-08] MEDS ORDERED: fentaNYL citrate 100 MCG/2 ML VIAL ONE (10:42)
[2018-12-08] MEDS ORDERED: MIDAZOLAM HCL 1 MG/ML 2ML VIAL ONE (10:42)
[2018-12-08] MEDS ORDERED: ONDANSETRON INJ 2 MG/ML 2 ML VIAL IV PRN ×3 (11:04→16:53)
[2018-12-08] MEDS ORDERED: fentaNYL citrate 100 MCG/2 ML VIAL IV PRN (11:04)
[2018-12-08] MEDS ORDERED: ePHEDrine sulfate 50 MG/ML AMP IV PRN (11:04)
[2018-12-08] MEDS ORDERED: ATROPINE SULFATE 0.1 MG/ML 10ML SYR IV PRN (11:04)
--- NOTE | 2018-12-08 11:27 | History & Physical Bridge Note ---
Date of Service December 08, 2018 History & Physical Bridge Note I have examined the patient, reviewed the History & Physical and in the interval since the performance of the History & Physical I have noted the following changes of clinical significance: no changes noted Reviewed scar location and planned procedure; pt understands scar will now be horizontally oriented to relieve tension
[2018-12-08] MEDS ORDERED: LIDOCAINE/EPINEPHRINE 1% 20 ML VIAL ONE (11:39)
[2018-12-08] MEDS ORDERED: BUPIVACAINE 0.25% 30 ML VIAL ONE (11:39)
[2018-12-08] MEDS ORDERED: GLYCOPYRROLATE 0.2 MG/ML VIAL ONE (12:04)
[2018-12-08] MEDS ORDERED: NEOSTIGMINE METHYLSULFATE 5 MG/5 ML SYR ONE (12:04)
[2018-12-08] MEDS ORDERED: LIDOCAINE HCL 2% 2 ML VIAL/AMP(20MG/ML) INFIL ONE (12:04)
[2018-12-08] MEDS ORDERED: ROCURONIUM BROMIDE 10 MG/ML 5 ML VIAL ONE (12:04)
[2018-12-08] MEDS ORDERED: HYDROmorphone INJ 2 MG/ML SYR/VIAL ONE (12:04)
[2018-12-08] MEDS ORDERED: ONDANSETRON INJ 2 MG/ML 2 ML VIAL ONE (12:04)
[2018-12-08] MEDS ORDERED: PROPOFOL IV EMULSION 10 MG/ML 20 ML VIAL IV ONE (12:04)
[2018-12-08] MEDS ORDERED: ePHEDrine sulfate 50 MG/ML SYR ONE (12:48)
--- NOTE | 2018-12-08 13:23 | Post Operative Brief Note ---
Immediate Post Op Note v1 Date of Surgery December 08, 2018 Pre & Post Diagnosis Operation Date: 12/08/18 11:50 Pre-Op Diagnosis: Painful Abdominal Scar Post-Op Diagnosis: Painful Abdominal Scar Procedure Operation Date: 12/08/18 11:50 Actual Procedures p Abdominal Scar Revision - Karis Conroy MD Surgeon Karis Conroy MD District Branch Manager Calista Fowler PA-C,Kellee Pro PA-C Estimated Blood Loss 5 Findings Consistent with Post-Op Diagnosis Drains Hemovac Drain
[2018-12-08] MEDS ORDERED: OXYCODONE/ACETAMINOPHEN 5mg/325mg TAB PO PRN ×2 (13:32→16:53)
[2018-12-08] MEDS ORDERED: METOCLOPRAMIDE HCL INJ 5 MG/ML 2 ML VIAL IV PRN (13:32)
[2018-12-08] MEDS ORDERED: ACETAMINOPHEN 325 MG TAB PO PRN ×2 (13:32→19:13)
--- NOTE | 2018-12-08 13:39 | Operative Report ---
Post Operative Report Pre & Post Diagnosis Operation Date: 12/08/18 11:50 Pre-Op Diagnosis: Painful Abdominal Scar Post-Op Diagnosis: Painful Abdominal Scar Procedure Operation Date: 12/08/18 11:50 Actual Procedures p Abdominal Scar Revision - Karis Conroy MD Surgeon Karis Conroy MD Sleeping [employer] Porter Calista Fowler PA-C,Kellee Pro PA-C Estimated Blood Loss 5 Findings Consistent with Post-Op Diagnosis Specimens scar tissue to pathology Indications Patient is s/popen cholecystectomy, open appendectomy with a perimedian incision, vertical and horizontal midline incisions for c-sections. She stated that the lower abdominal scars pull against each other causing the patient discomfort. This has been causing her pain for the past year. Over the last year, the patient complained of bleeding from her scars. She has gained weight over the past few years, about 10lbs/year over a few years. Feels that her abdomen bulges around the scars, so CT was performed which demonstrated no evidence of hernia. Steroid injection was performed in the office to try to soften the scars without any improvement. She was not a candidate for panniculectomy due to open maribell scar, and therefore I recommended scar revision to remove as much of the scarring as possible. We discussed using a horizontal incision as well as vertical midline component to remove as much scar as possible. Description of Procedure Risks, benefits, and alternatives of the procedure were explained to the patient who agreed and signed consent. She was identified and marked in the preoperative holding area. She was brought to the operating room where she was positioned supine and placed under general anesthesia without incident. Surgical site was prepped and draped sterilely. A time-out procedure was performed. I reassessed my markings which included a lower horizontal abdominal incision with the midportion 7 cm above the vulvar commissure. Incision was marked in an inverted T to incorporate the vertical scar, and widely marked centrally to remove the hypertrophic and tethered portions as well as the horizontal scar. I began by injecting 1% lidocaine with epinephrine along the planned incision. The lower abdominal incision was made using a 15-blade scalpel to incise epidermis and superficial dermis followed by electrocautery to incise deep dermis, subcutaneous fat, Wilian's fascia down to the abdominal wall. The superior incisions were made using a 15 blade scalpel. Electrocautery was used to dissect the scar off of the underlying fascia, and undermining was performed for about 4 cm cephalad to release the remaining paramedian scar that could not be excised due to its proximity to the lower portion of the midline scar. Hemostasis was achieved with electrocautery. A 15 [place] Island[place] Doc drain was placed in the wound bed to prevent seroma and brought out through a separate stab incision in the mons pubis. The drains were sutured into place using 3-0 nylon. Wound closure was then begun lateral to medial using 2-0 Vicryl Wilian's fascia sutures, 2-0 Vicryl deep dermal sutures, 2-0 PDO running superficial Quill suture, 3-0 Monocryl running subcuticular suture. Vertical component was brought together using 2-0 Vicryl deep dermal sutures, 3-0 PDS interrupted superficial dermal sutures, 3-0 monocryl running subcuticular suture. The incision was dressed using Dermabond Prineo followed by dry dressings and an abdominal binder. P a total of 20 mL of 0.25% Marcaine plain were placed via the FLEX drain. Total complex wound closure length was 35 cm. The procedure was tolerated well. The patient was awakened and transferred to recovery in satisfactory condition. Calista Fowler was present and scrubbed throughout the entire procedure and was instrumental in providing retraction of the pannus and assisting in simultaneous wound closure. I attest to the content of the Intraoperative Record and any orders documented therein. Any exceptions are noted below.
--- NOTE | 2018-12-08 14:51 | Anesthesiology Progress Note ---
Date of Service December 08, 2018 Anesthesia Post Procedure Vital Signs Vital Signs: Temp Pulse Pulse Resp BP BP Pulse Ox 12/08/18 14:20 36.3 C L 71 16 151/82 H 97 12/08/18 14:10 36.6 C 80 16 153/79 H 96 12/08/18 14:00 81 16 147/75 H 96 12/08/18 13:50 84 16 149/79 H 96 12/08/18 13:40 84 16 157/86 H 96 12/08/18 13:33 37.2 C 98 H 16 146/78 H 95 12/08/18 10:58 36.8 C 54 L 16 141/65 H 94 Transfer of Care Handoff Completed per policy Notes Mental Status: alert / awake / arousable and participated in evaluation Patient Amnestic to Procedure: Yes Nausea / Vomiting: adequately controlled Pain: adequately controlled Airway Patency, RR, SpO2: stable & adequate BP & HR: stable & adequate Hydration State: stable & adequate Anesthetic Complications: no major complications apparent and Pt Satisfied with anesthetic care
[2018-12-08] MEDS ORDERED: MoRPHine SULFATE 2 MG/ML CARP IV PRN (16:50)
[2018-12-08] MEDS ORDERED: MoRPHine SULFATE 4 MG/ML 1 ML CARP\\VIAL IV PRN (16:51)
[2018-12-08] MEDS ORDERED: ACETAMINOPHEN 1,000 MG/100 ML VIAL IV STA (16:52)
[2018-12-08] MEDS: D5W AND 1/2NSS + 20MEQ KCL 20 MEQ/1,000 ML BAG IV SCH (18:34)
--- NOTE | 2018-12-08 18:42 | Consultation ---
Date of Consultation December 08, 2018 Assessment & Plan (1) Scar of abdominal skin: POD #0 abdominal scar revision by Dr. Conroy EBL 5 ml tolerated procedure well except for post op nausea, urinary retention and hypoxia pain/wound management per surgery activity as directed by surgery incentive spirometry cont IVF + KCL 100cc/hr H/H, bmp in a.m. (2) Postoperative hypoxia: Patient with postop hypoxia, mild left basilar rales Obtain chest x-ray Continue oxygen and titrate as needed Likely secondary to atelectasis Encourage incentive spirometry every hour (3) Asthma, mild persistent: Well-controlled No acute exacerbation Albuterol as needed (4) Dyslipidemia: continue zetia (5) GERD (gastroesophageal reflux disease): continue omeprazole (6) Pre-diabetes: A1C 5.9 06/2018 monitor FBS in a.m. (7) DVT prophylaxis: SCDS/TEDS Disposition: per primary Follow up: PCP Dr. Bolton upon discharge Patient was seen and examined in collaboration with Dr. Beck, please see addendum Thank you for this consultation. We will follow the patient with you during their hospital stay. You can reach a member of the [facility] Hospitalist Team 05/01 via pager @ [phone]. Supervising Physician Co-Signing Physician Notes Attending addendum: The patient was seen and examined today in medical floor She has been a little drowsy but denies any other symptoms Does not have any abdominal pain, has little nausea but no vomiting, no shortness of breath On examination No apparent distress at rest Hemodynamically stable Chest-few crackles at the bases Heart-S1-S2, regular Abdomen-mildly tender Extremities-no edema Her labs and imaging studies reviewed Noted to have desaturation following surgery No apparent cause found except history of controlled asthma and the chest x-ray did not show any fluid overload Agree with assessment and plan as outlined above by KWASI Das Dr History of Present Illness Requesting Physician: Dr. Conroy Reason for Consultation: Hypoxia post operatively Attending Physician: Dr. Beck History of Present Illness This is a 63-year-old female who has a significant past medical history of right breast CA status post lumpectomy and radiation in 2017, HLD, prediabetes mellitus A1C 5.9, allergic rhinitis, GERD, hiatal hernia, Asthma, IBS presents to [facility] for elective abdominal scar revision surgery by Dr. Conroy. Pt with hx of numerous abdominal surgeries including open cholecystectomy and appendectomy, x2, exploratory laparoscopy. The past 1 year she has been having pain around scar sites along with bleeding around scar. Due to complaints Dr. Conroy performed elective abdominal surgical scar revision. She tolerated procedure well except for post op nausea, emesis x 1, urinary retention requiring straight catheterization of 800 cc and hypoxia. Per nursing notes patient would desaturate and required 1-2 L of O2 to maintain oxygen saturations despite spirometry. It was felt to be secondary to atelectasis. Due to unable to wean oxygen she was admitted to medical floor. Currently she feels drowsy, lightheaded, mildly nauseous. Complains of incisional pain. She denies any fever, chills, sweats, dizziness, presyncope, chest pain, palpitations. She has hx of IBS with constipation and diarrhea. She is tolerating liquids. Allergies Allergy/AdvReac Type Severity Reaction Status Date / Time Penicillins Allergy Severe edema of Verified 12/08/18 10:50 face, tongue, and lips. Rash colestipol Allergy Intermediate Leg cramps Verified 12/08/18 10:50 fexofenadine Allergy Intermediate Tachycardia Verified 12/08/18 10:50 niacin Allergy Intermediate Leg cramps Verified 12/08/18 10:50 terfenadine Allergy Intermediate JITTERY Verified 12/08/18 10:50 astemizole Allergy Mild JITTERY Verified 12/08/18 10:50 levofloxacin Allergy Mild Jittery Verified 12/08/18 10:50 loratadine Allergy Mild JITTERY Verified 12/08/18 10:50 Sulfa (Sulfonamide Allergy Mild Rash Verified 12/08/18 10:50 Antibiotics) sulfamethoxazole Allergy Mild Rash Verified 12/08/18 10:50 cefuroxime Allergy Unknown CAN'T Verified 12/08/18 10:50 REMEMBER Qcxsuyo-Kfx-Jjh Reductase AdvReac Unknown leg cramps Verified 12/08/18 10:50 Inhibitor Home Medications Home Medications Medication Instructions Recorded Confirmed Type albuterol sulfate 2.5 mg INHALATION Q4H PRN 05/30/18 12/08/18 History albuterol sulfate [Ventolin HFA] 2 puff INHALATION Q4H PRN 05/30/18 12/08/18 History calcium carbonate [Tums] 200 mg PO DAILY PRN 05/30/18 12/08/18 History cholecalciferol (vitamin D3) 2,000 unit PO QDL 05/30/18 12/08/18 History [Vitamin D3] docusate sodium 100 mg PO TID 05/30/18 12/08/18 History sodium chloride [Giles Nasal] 1 spray INTRANASAL UD PRN 05/30/18 12/08/18 History valacyclovir 2,000 mg PO DAILY PRN 05/30/18 12/08/18 History omeprazole 20 mg PO BID 08/03/18 12/08/18 History psyllium husk [Metamucil] 0.52 g PO Q2D 08/03/18 12/08/18 History montelukast [Singulair] 10 mg PO HS 08/11/18 12/08/18 History azelastine-fluticasone 1 spray INTRANASAL BID 10/22/18 12/08/18 History dicyclomine 10 mg PO TID PRN 10/22/18 12/08/18 History ezetimibe [Zetia] 10 mg PO QAM 10/22/18 12/08/18 History triamcinolone acetonide [Nasacort] 1 spray INTRANASAL QPM 10/22/18 12/08/18 History Align 4 mg PO QAM 11/24/18 12/08/18 History cyanocobalamin (vitamin B-12) 1,000 mcg PO QDL 11/24/18 12/08/18 History [Vitamin B-12] cetirizine [Zyrtec] 10 mg PO DAILY PRN 12/08/18 12/08/18 History Patient History Family History Mother Family history of diabetes mellitus Other Diabetes Heart disease Social History Preferred Language: Icelandic Communication Ability: Effective Beliefs That Will Affect Care: None Current Living Situation: Spouse Feels Safe at Home: Yes Safety Concerns: Feels Safe At This Time Smoking Status: Never smoker Do You Dip or Chew Tobacco: No Second Hand Exposure: No Hx Alcohol Use: No Hx Substance Use: No Review of Systems Review of Systems: As noted per HPI, 10 systems reviewed and negative unless noted above. Physical Exam Physical Exam: Gen: WD/WN, F, NAD, sitting up in bed, pleasant, conversing easily Head: Normocephalic, Atraumatic Eyes: Sclera normal, no conjunctival injection, PERRLA, EOMI ENT: Gross hearing intact, normal pharynx, mucous membranes moist Neck: supple, no adenopathy, No JVD, no bruit, Resp: Clear to auscultation b/l, mild L basilar rales noted, but wheeze or rhonchi. Normal insp/exp effort, no accessory muscle use, On 1L O2 via NC CV: Regular rate, regular rhythm, no murmur, rub, gallop, or ectopy Abd: +abdominal dressing CDI with FLEX drain with serosanguineous drainage, +BS x 4, soft, nondistended Musculoskeletal: moves extremities active rom x 4, strength intact, good radio adjuster strength Extremities: No edema bilaterally, +SCDS in place Skin: warm, moist, no rash, negative turgor, cap refill < 2sec Neuro: Alert and oriented x 3, speech normal, good mood/affect, cran nerve 2-12 intact grossly : deferred Results & Data Vital Signs (Past 12 Hours) Vital Signs Temp Pulse Pulse Resp BP BP Pulse Ox 12/08/18 18:20 36.4 C L 65 18 162/82 H 98 12/08/18 17:50 36.5 C 65 14 145/85 H 97 12/08/18 17:21 36.2 C L 69 16 148/80 H 99 12/08/18 16:27 36.3 C L 53 L 16 164/86 H 97 12/08/18 15:47 53 L 16 135/66 97 12/08/18 15:20 36.3 C L 84 14 145/76 H 97 12/08/18 14:50 36.3 C L 88 14 138/77 94 12/08/18 14:20 36.3 C L 71 14 151/82 H 97 12/08/18 14:10 36.6 C 80 16 153/79 H 96 12/08/18 14:00 81 16 147/75 H 96 12/08/18 13:50 84 16 149/79 H 96 12/08/18 13:40 84 16 157/86 H 96 06/26/19 13:33 37.2 C 98 H 16 146/78 H 95 12/08/18 10:58 36.8 C 54 L 16 141/65 H 94 Pulse Ox 12/08/18 18:20 12/08/18 17:50 97 12/08/18 17:21 12/08/18 16:27 12/08/18 15:47 12/08/18 15:20 12/08/18 14:50 12/08/18 14:20 12/08/18 14:10 12/08/18 14:00 12/08/18 13:50 12/08/18 13:40 12/08/18 13:33 12/08/18 10:58
[2018-12-08] MEDS ORDERED: ALBUTEROL 0.083% NEBU SOLN 3 ML VIAL NEB PRN (18:59)
[2018-12-08] MEDS ORDERED: CETIRIZINE HCL 10 MG TABLET PO PRN (19:16)
[2018-12-08] MEDS ORDERED: CALCIUM CARBONATE 500 MG CHEWABLE TAB PO PRN (19:16)
[2018-12-08] MEDS ORDERED: ALBUTEROL HFA 8 GM INHALER INH PRN (19:16)
[2018-12-08] MEDS ORDERED: DICYCLOMINE HCL 10 MG CAP PO PRN (19:16)
[2018-12-08] MEDS ORDERED: ALBUTEROL 0.083% NEBU SOLN 3 ML VIAL INH PRN (19:16)
[2018-12-08] MEDS ORDERED: VALACYCLOVIR HCL 500 MG TABLET PO PRN (19:16)
[2018-12-08] MEDS ORDERED: SODIUM CHLORIDE 0.65% NA SOLN 45 ML (OCEAN) PRN (19:16)
--- NOTE | 2018-12-08 19:24 | XRay Report ---
XR chest 2V routine CLINICAL HISTORY: hypoxia COMPARISON STUDY: Chest radiograph May 30, 2018. FINDINGS: Lung volumes are normal. Lungs are clear. There is no pneumothorax or pleural effusion. Car diac size is normal. Mediastinal contours are normal. There is no evidence for pulmonary edema. Minim al left lower lung opacity favors atelectasis. IMPRESSION: 1. No acute cardiopulmonary findings. 2. Minimal linear left basilar opacity which favors atelectasis. Electronically signed by: Hang Tomlin M.D. 12/08/2018 7:23 PM
--- NOTE | 2018-12-08 19:26 | Surgery Progress Note ---
Date of Service December 08, 2018 Assessment & Plan (1) Scar of abdomen: no concerns re surgical site (2) Postoperative hypoxia: appreciate hospitalist input re: significant hypoxia patient remains on supplemental O2, using incentive spirometer continued observation until able to tolerate room air Subjective s/p scar revision of multiple abdominal scars patient unable to be discharged home postoperatively due to sedation and hypoxia (desat to 80% on room air) seen by hospitalist, felt to be atelectasis patient denies significant pain, complains of feeling nauseated and sleepy Physical Exam Physical Exam: dressings c/d/i to abdomen drain serosanguinous Results & Data Vital Signs (Past 12 Hours) Vital Signs Temp Pulse Pulse Resp BP BP Pulse Ox 12/08/18 18:58 36.3 C L 64 16 146/85 H 98 12/08/18 18:20 36.4 C L 65 18 162/82 H 98 12/08/18 17:50 36.5 C 65 14 145/85 H 97 12/08/18 17:21 36.2 C L 69 16 148/80 H 99 12/08/18 16:27 36.3 C L 53 L 16 164/86 H 97 12/08/18 15:47 53 L 16 135/66 97 12/08/18 15:20 36.3 C L 84 14 145/76 H 97 12/08/18 14:50 36.3 C L 88 14 138/77 94 12/08/18 14:20 36.3 C L 71 14 151/82 H 97 12/08/18 14:10 36.6 C 80 16 153/79 H 96 12/08/18 14:00 81 16 147/75 H 96 12/08/18 13:50 84 16 149/79 H 96 12/08/18 13:40 84 16 157/86 H 96 12/08/18 13:33 37.2 C 98 H 16 146/78 H 95 12/08/18 10:58 36.8 C 54 L 16 141/65 H 94 Pulse Ox 12/08/18 18:58 12/08/18 18:20 12/08/18 17:50 97 12/08/18 17:21 12/08/18 16:27 12/08/18 15:47 12/08/18 15:20 12/08/18 14:50 12/08/18 14:20 12/08/18 14:10 12/08/18 14:00 12/08/18 13:50 12/08/18 13:40 12/08/18 13:33 12/08/18 10:58
[2018-12-08] MEDS: DOCUSATE SODIUM 100 MG CAP PO SCH (20:52)
[2018-12-08] MEDS: PANTOprazole 40 MG TAB PO SCH (20:52)
[2018-12-08] MEDS ORDERED: MONTELUKAST SODIUM 10 MG TABLET PO SCH (21:00)
[2018-12-08] MEDS ORDERED: TRIAMCINOLONE ACET NASAL SPRAY 10.8ML BTL SCH (21:00)
[2018-12-09] MEDS: D5W AND 1/2NSS + 20MEQ KCL 20 MEQ/1,000 ML BAG IV SCH (05:40)
[2018-12-09] MEDS: OXYCODONE/ACETAMINOPHEN 5mg/325mg TAB PO PRN ×2 (05:45→11:10)
[2018-12-09 06:32] LABS: Hematocrit (blood only) 37.3 % (37-47); Hemoglobin 12.6 g/dL (12.0-16.0); Mean Corpuscular Hgb Conc 33.8 g/dL (32-36); Mean Corpuscular Volume 92.8 fL (80-100); Mean Platelet Volume 9.1 fL (7.4-10.4); Platelet Count 218 K/uL (130-400); RDW Coefficient of Variation 12.6 % (11.5-14.5); RDW Standard Deviation 42.9 fL (36.4-46.3); Red Blood Count 4.02 M/uL (4.2-5.4); White Blood Count 9.36 K/uL (4.8-10.8)
[2018-12-09 07:06] LABS: BUN Creatinine Ratio 10.5 (10-20); Calcium 8.8 mg/dl (8.5-10.1); Creatinine Clr Calc Pharmacy 90.9 ml/min; Est GFR (African American) 109.7; Est GFR (Non-African American) 94.7; Potassium 3.8 mmol/L (3.5-5.1)
--- NOTE | 2018-12-09 07:56 | Surgery Progress Note ---
Date of Service December 09, 2018 Assessment & Plan (1) Scar of abdomen: Patient with painful abdominal scar. POD#1 s/p abdominal scar revision. Developed hypoxia and nausea in recovery- medicine consulted. CXR revealed atelectasis. patient now stable on room air and tolerating regular diet. Plan for d/c home today with office follow-up tomorrow after cleared by medicine during rounds. Subjective Patient is resting comfortably. She tolerated regular diet last night and is off of oxygen. VSS Review of Systems Constitutional: as per Subjective / HPI; no fever Physical Exam Constitutional: WD/WN, vitals as above well developed and well nourished; no acute distress Skin: + incision (CDI, drains with scant bloody and serous output) Results & Data Vital Signs (Past 12 Hours) Vital Signs Temp Pulse Resp BP Pulse Ox Pulse Ox 12/09/18 07:32 36.6 C 57 L 18 122/71 95 12/09/18 02:33 36.8 C 59 L 16 136/76 96 12/09/18 00:34 130/78 12/08/18 23:30 97 12/08/18 22:53 36.7 C 61 18 169/71 H 97 12/08/18 21:08 36.5 C 66 18 144/76 H 97 12/08/18 19:56 36.4 C L 72 16 154/75 H 99
[2018-12-09] MEDS: PANTOprazole 40 MG TAB PO SCH (08:45)
[2018-12-09] MEDS: DOCUSATE SODIUM 100 MG CAP PO SCH ×2 (08:45→13:35)
[2018-12-09] MEDS ORDERED: PSYLLIUM 58.6% POWDER PACKET PO SCH (09:00)
[2018-12-09] MEDS ORDERED: EZETIMIBE 10 MG TABLET PO SCH (09:00)
[2018-12-09] MEDS ORDERED: MULTIVITAMIN TAB PO SCH (09:00)
--- NOTE | 2018-12-09 09:55 | Hospitalist Progress Note ---
Date of Service December 09, 2018 Assessment & Plan (1) Scar of abdominal skin: POD #1 abdominal scar revision by Dr. Conroy EBL 5 ml; FLEX drain 25ml tolerated procedure well except for post op nausea, urinary retention and hypoxia Post op hypoxia secondary to atelectasis; patient is saturating well on room air without complaint pain/wound management per surgery activity as directed by surgery incentive spirometry Patient is medically stable for discharge (2) Postoperative hypoxia: Patient with postop hypoxia, mild left basilar rales Chest x-ray confirms atelectasis Symptoms improved with supplemental oxygen and incentive spirometer Saturating well on room air (3) Asthma, mild persistent: Well-controlled No acute exacerbation Albuterol as needed (4) Dyslipidemia: continue zetia (5) GERD (gastroesophageal reflux disease): continue omeprazole (6) Pre-diabetes: A1C 5.9 06/2018 monitor FBS in a.m. (7) DVT prophylaxis: SCDS/TEDS Disposition: per primary Follow up: PCP Dr. oBlton upon discharge Patient was seen and examined in collaboration with Dr. Beck, please see addendum Thank you for this consultation. We will follow the patient with you during their hospital stay. You can [facility] via pager @ [phone]. Supervising Physician Co-Signing Physician Notes Attending addendum The patient was seen and examined in medical floor She denies any complaints today She has been saturating normally with room air and on exertion On examination No apparent distress at rest Hemodynamically stable Chest-clear to auscultate bilaterally Heart-S1-S2, regular Abdomen-mildly tender on palpation, status post skin graft surgery Labs and imaging studies reviewed Medically stable And agree with assessment and plan as outlined above by KWASI Das Dr. Subjective Patient seen and examined in room 388-2 Follow-up abdominal scar revision POD #1 Patient is doing well this morning and offers no acute complaints or concerns. She states at approximately 8 PM she no longer requires oxygen. "I am not sure why it took so long for anesthesia to wear off. She does complain of some incisional discomfort. Denies any fever, chills, sweats, lightheadedness, dizziness, chest pain, shortness of breath, hemoptysis, nausea, vomiting, difficulty with urination. She is anxious to be discharged home today. "I have to be very careful about my dogs when I go home and my incision." Review of Systems Review of Systems: As noted per HPI, 10 systems reviewed and negative unless noted above. Physical Exam Physical Exam: Gen: WD/WN, female, sitting up in bed eating breakfast, NAD, A&O x3 HEENT: Normocephalic, atraumatic, conjunctivae moist, sclerae anicteric, mucous membranes moist. Lung: Clear to Auscultation bilaterally, no wheezes/rales/rhonchi Heart: Regular rate, regular rhythm, no murmurs, rubs, or gallops Abdomen: Positive abdominal binder in place, dressing CDI. Soft, ND +BS x 4, FLEX drain with serosanguineous scant output Extremities: No edema Skin: Warm, no rash, negative turgor. Results & Data Vital Signs (Past 12 Hours) Vital Signs Temp Pulse Resp BP Pulse Ox Pulse Ox 12/09/18 07:32 36.6 C 57 L 18 122/71 95 12/09/18 02:33 36.8 C 59 L 16 136/76 96 12/09/18 00:34 130/78 12/08/18 23:30 97 12/08/18 22:53 36.7 C 61 18 169/71 H 97 Laboratory Results Short CBC 12/09/18 Range/Units 06:16 WBC 9.36 (4.8-10.8) K/uL Hgb 12.6 (12.0-16.0) g/dL Hct 37.3 (37-47) % Plt Count 218 (130-400) K/uL [facility] 12/09/18 06:16 Sodium 142 Potassium 3.8 Chloride 107 Carbon Dioxide 30 BUN 7 Creatinine 0.66 Glucose 105 H Calcium 8.8 Diagnostic Findings CXR: IMPRESSION: 1. No acute cardiopulmonary findings. 2. Minimal linear left basilar opacity which favors atelectasis. Medications Administered Albuterol (Ventolin Hfa) 2 puffs INH Q4H PRN PRN Reason: Wheezing Stop: 01/07/19 19:15 Last Admin: 12/08/18 20:51 Dose: 2 puffs Documented by: [id number] Docusate Sodium (Colace) 100 mg PO TID FARIDEH Stop: 01/07/19 20:59 Last Admin: 12/09/18 08:45 Dose: 100 mg Documented by: [id number] Admin: 12/08/18 20:52 Dose: 100 mg Documented by: [id number] Ezetimibe (Zetia) 10 mg PO QAM [facility] Stop: 01/08/19 08:59 Last Admin: 12/09/18 08:45 Dose: 10 mg Documented by: [id number] Miscellaneous (Order Awaiting Action) 1 ea N/A QS [facility] Stop: 01/08/19 00:00 Last Admin: 12/09/18 08:46 Dose: Not Given Documented by: [id number] Admin: 12/09/18 05:46 Dose: Not Given Documented by: [id number] Montelukast Sodium (Singulair) 10 mg PO HS [facility] Stop: 01/07/19 20:59 Last Admin: 12/08/18 20:52 Dose: 10 mg Documented by: [id number] Multivitamins ([facility]ivitamin Tab) [facility] [place] [place]: 01/08/19 08:59 Last Admin: 12/09/18 08:45 Dose: 1 tab Documented by: [id number] Oxycodone/Acetaminophen (Percocet 5mg/325mg) 1 tab PO Q4H PRN PRN Reason: pain (scale 1-5) Stop: 12/09/18 13:31 Last Admin: 12/08/18 22:52 Dose: 1 tab Documented by: [id number] Oxycodone/Acetaminophen (Percocet 5mg/325mg) 2 tab PO Q4H PRN PRN Reason: pain (scale 6-10) Stop: 12/09/18 13:31 Last Admin: 12/09/18 05:45 Dose: 2 tab Documented by: [id number] Pantoprazole Sodium (Protonix) 40 mg PO BID [facility]; Protocol Stop: 01/07/19 20:59 Last Admin: 12/09/18 08:45 Dose: 40 mg Documented by: [id number] Admin: 12/08/18 20:52 Dose: 40 mg Documented by: [id number] Psyllium Hydrophilic Mucilloid (Metamucil) 1 pkt PO Q2D [facility]; Protocol Stop: 01/08/19 08:59 Last Admin: 12/09/18 08:46 Dose: 1 pkt Documented by: [id number] Triamcinolone Acetonide (Nasacort) 1 sprays NA QPM [facility] Stop: 01/07/19 20:59 Last Admin: 12/08/18 20:52 Dose: 1 sprays Documented by: [id number] Discontinued Medications Bupivacaine HCl (Sensorcaine 0.25% Inj) Confirm Administered Dose 30 ml .ROUTE .STK-MED ONE Stop: 12/08/18 11:40 Last Admin: 12/08/18 13:15 Dose: 20 ml Documented by: [id number] Lactated Ringer's (Lr) 1,000 mls @ 15 mls/hr IV .Q24H FARIDEH Stop: 12/08/18 18:00 Last Infusion: 12/08/18 11:43 Dose: 0 mls/hr Documented by: [id number] Admin: 12/08/18 11:06 Dose: 15 mls/hr Documented by: [id number] Clindamycin Phosphate (Cleocin) 600 mg in 54 mls @ 100 mls/hr IV PREOP FARIDEH Stop: 12/08/18 18:00 Last Infusion: 12/08/18 17:02 Dose: 0 mls/hr Documented by: [id number] Admin: 12/08/18 11:43 Dose: 100 mls/hr Documented by: [id number] Acetaminophen (Ofirmev) 1,000 mg in 100 mls @ 400 mls/hr IV NOW STA Stop: 12/08/18 17:06 Last Infusion: 12/08/18 17:57 Dose: 0 mls/hr Documented by: [id number] Admin: 12/08/18 17:07 Dose: 400 mls/hr Documented by: [id number] Potassium Chloride/Dextrose/Sod Cl (D5w And 1/2nss + 20meq Kcl) 20 meq in 1,000 mls @ 50 mls/hr IV .Q20H FARIDEH Stop: 01/07/19 17:59 Last Admin: 12/09/18 05:40 Dose: Not Given Documented by: [id number] Infusion: 12/09/18 05:39 Dose: 0 mls/hr Documented by: [id number] Infusion: 12/08/18 19:38 Dose: 50 mls/hr Documented by: [id number] Admin: 12/08/18 18:34 Dose: 100 mls/hr Documented by: [id number] Lidocaine/Epinephrine (Xylocaine/Epinephrine 1%) Confirm Administered Dose 20 ml .ROUTE .STK-MED ONE Stop: 12/08/18 11:40 Last Admin: 12/08/18 12:58 Dose: 10 ml Documented by: [id number]
--- NOTE | 2018-12-09 10:39 | Discharge Summary ---
Date of Service December 09, 2018 Admission HPI Per Admitting Provider see admission H&P Admission Exam Per Admitting Provider see admission H&P Principal Diagnosis painful abdominal scar Discharge Exam Constitutional WD/WN, vitals as above well developed and well nourished; no acute distress Skin + incision (CDI, drains with scant bloody and serous output) Discharge Data Allergies Allergy/AdvReac Type Severity Reaction Status Date / Time Penicillins Allergy Severe edema of Verified 12/08/18 10:50 face, tongue, and lips. Rash colestipol Allergy Intermediate Leg cramps Verified 12/08/18 10:50 fexofenadine Allergy Intermediate Tachycardia Verified 12/08/18 10:50 niacin Allergy Intermediate Leg cramps Verified 12/08/18 10:50 terfenadine Allergy Intermediate JITTERY Verified 12/08/18 10:50 astemizole Allergy Mild JITTERY Verified 12/08/18 10:50 levofloxacin Allergy Mild Jittery Verified 12/08/18 10:50 loratadine Allergy Mild JITTERY Verified 12/08/18 10:50 Sulfa (Sulfonamide Allergy Mild Rash Verified 12/08/18 10:50 Antibiotics) sulfamethoxazole Allergy Mild Rash Verified 12/08/18 10:50 cefuroxime Allergy Unknown CAN'T Verified 12/08/18 10:50 REMEMBER Ophkvnh-Les-[id number] Reductase AdvReac Unknown leg cramps Verified 12/08/18 10:50 Inhibitor Consultations 12/08/18 17:38 Consult Hospitalist Routine Procedures Performed Operation Date: 12/08/18 11:50 Actual Procedures p Abdominal Scar Revision - Karis Conroy MD Hospital Course (1) Scar of abdomen: Patient presented to [facility] with history of painful abdominal scar. She was taken to the OR and underwent abdominal scar revision. There were no intraoperative complications. She was taken to recovery and developed post- operative hypoxia and nausea. She was stable on oxygen, unable to tolerate room air. She was admitted for observation and hospitalist consulted. CXR revealed atelectasis. She was able to wean off oxygen later that night. On POD#1, she was feeling well. She was tolerating a regular diet and ambulating. On exam, her vitals were stable. Her incisions were CDI. Her drain had appropriate output. She was discharged home with instructions to follow-up in the office in one day. Total Time Total Time Spent Total Time Spent (In Minutes): 15 Total Time Includes: Examination of the Patient, Discharge Planning and Medication Reconciliation Discharge Plan Discharge Items Patient Disposition: Home - Self-Care Reason For Visit: Painful Abdominal Scar Discharge Diagnosis: s/p revision of painful scar Discharge Goals: Decrease discomfort and Improve function Activity: As commented below Non-emergency contact: Surgeon Call non-emergency contact if: you have any medication questions, your pain is unusual for you, you have a fever, your wound has increased redness and your wound has increased drainage Follow-up/Referrals: Ellyn Bolton MD [Primary Care Provider] - Diet: Regular Addtl Provider Instructions: ACTIVITY RECOMMENDATIONS: __Normal activities _x_No bending, lifting or straining __No driving __Driving allowed when you are off pain medications _x_Walking permitted __You should have help at home for ___ days DRESSINGS: __No dressings required _x_Keep dressings dry/in place until first office visit __Remove dressings ___ and leave dressings off __Apply ice ___ days __Remove dressings and reapply garment __Apply antibiotic ointment (Bacitracin, Neosporin, etc) to wounds 3-4 times/day for 10 days BATHING: _x_Keep dressings dry _x_Sponge bathing permitted __Showering permitted _x_No swimming, hot tubs or soaking in a tub MEDICATIONS: Resume previous medications unless instructed otherwise by your surgeon. _x_Do not use aspirin, Motrin, Advil or Ibuprofen as these may promote bleeding. Please use Tylenol. _x_Prescription(s) provided:pain medication was provided at your last office visit OTHER INSTRUCTIONS: _x_Record drain output 2-3 times per day SPECIAL CARE INSTRUCTIONS: * It is normal to have a mild fever after surgery. If your temperature is higher than 101.5 degrees F, please call the office at [phone]. * Constipation is a typical side effect of pain medication. An [id number]-jty-[id number] stool softener will help relieve this. * Leaking around surgical drains may occur and should not cause concern. Sometimes these drains become clogged. If this happens, remove the bulb and milk the clot out of the tube, then replace the bulb. * Drainage from wounds after liposuction is normal and should be expected. Garments will become soiled. You should protect furniture and bedding. This drainage should mostly subside within 2-3 days. Leave garments in place unless instructed to remove them. * If you have unusual drainage from a wound or are concerned you have an infection or have any questions or concerns, please call the office at [phone]. FOLLOW UP VISIT: If not already scheduled, please call the office, , when you return home after surgery to schedule an appointment to be seen in __2_ days. Prescriptions: Continued omeprazole 20 mg Capsule,Delayed Release(Dr/Ec) 20 mg PO BID RF: 0 psyllium husk [Metamucil] 0.52 gram Capsule 0.52 g PO Q2D RF: 0 triamcinolone acetonide [Nasacort] 55 mcg Aerosol,E[place]rett 1 spray INTRANASAL QPM RF: 0 dicyclomine 10 mg Capsule 10 mg PO TID PRN (Reason: Abdominal Pain) RF: 0 ezetimibe [Zetia] 10 mg Tablet 10 mg PO QAM RF: 0 azelastine-fluticasone 137-50 mcg/spray Everett,Non-Aerosol 1 spray INTRANASAL BID RF: 0 albuterol sulfate 2.5 mg /3 mL (0.083 %) Solution For Nebulization 2.5 mg INHALATION Q4H PRN (Reason: Wheezing) RF: 0 calcium carbonate [Tums] 200 mg calcium (500 mg) Tablet,Chewable 200 mg PO DAILY PRN (Reason: STOMACH ISSUES) RF: 0 docusate sodium 100 mg Capsule 100 mg PO TID RF: 0 albuterol sulfate [Ventolin HFA] 90 mcg/actuation Hfa Aerosol Inhaler 2 puff INHALATION Q4H PRN (Reason: Wheezing) RF: 0 sodium chloride [Cowley Nasal] 0.65 % Aerosol,Everett 1 spray INTRANASAL UD PRN (Reason: Dry Nasal Passages) RF: 0 valacyclovir 1 gram Tablet 2,000 mg PO DAILY PRN (Reason: Cold Sores) RF: 0 cholecalciferol (vitamin D3) [Vitamin D3] 1,000 unit Capsule 2,000 unit PO QDL RF: 0 montelukast [Singulair] 10 mg Tablet 10 mg PO HS RF: 0 cyanocobalamin (vitamin B-12) [Vitamin B-12] 500 mcg Tablet 1,000 mcg PO QDL RF: 0 Align 4 mg Capsule 4 mg PO QAM RF: 0 cetirizine [Zyrtec] 10 mg Tablet 10 mg PO DAILY PRN (Reason: Allergic Reaction) RF: 0 Stand-Alone Forms: Anesthesia/Sedation, Adult, [facility]/Other Patient Handouts: Surgery Prevent DVT After Discharge Orders: Discharge Order (Routine); Ordered 12/08/18 Ordered By: Calista Fowler Admission Data Admit Date/Time: 12/08/18 16:47 Attending Provider: Karis Conroy Admit Provider: Karis Conroy Primary Care Provider: Ellyn Bolton Other Providers: Dash Perkins ; Ismael Beck Service: Surgical Services Other Pending Studies at Discharge: Yes Studies:: pathology
[2018-12-09] MEDS ORDERED: CYANOCOBALAMIN 500 MCG TABLET (VITAMIN B-12) PO SCH (11:30)
[2018-12-09] MEDS ORDERED: CHOLECALCIFEROL 1,000 UNITS TAB PO SCH (11:30)
== END 2018-12-09 14:30 | disposition home or self-care (01) | DRG 581 ==
LOC: 3N 10:17 → ASU 10:17 → OBSVTOIN 16:47
DX: H90.5 Unspecified sensorineural hearing loss; H69.80 Other specified disorders of Eustachian tube, unspecified ear; Z88.0 Allergy status to penicillin; L90.5 Scar conditions and fibrosis of skin; J34.2 Deviated nasal septum; K58.9 Irritable bowel syndrome, unspecified; J34.3 Hypertrophy of nasal turbinates; R52 Pain, unspecified

== ENCOUNTER 2020-10-28 05:55 | Inpatient (IN) ==
[2020-10-28 06:34] LABS: Basophils # (auto) 0.03 K/uL (0-0.2); Basophils % (auto) 0.4 %; Eosinophils # (auto) 0.02 K/uL (0-0.5); Eosinophils % (auto) 0.3 %; Hematocrit (blood only) 44.5 % (37-47); Hemoglobin 15.7 g/dL (12.0-16.0); Immature Granulocytes # (auto) 0.02 K/uL (0.00-0.02); Immature Granulocytes % (auto) 0.3 %; Lymphocytes # (auto) 2.03 K/uL (1.2-3.4); Lymphocytes % (auto) 28.7 %; Mean Corpuscular Hemoglobin 32.6 pg (25-34); Mean Corpuscular Hgb Conc 35.3 g/dL (32-36); Mean Corpuscular Volume 92.3 fL (80-100); Mean Platelet Volume 9.5 fL (7.4-10.4); Monocytes # (auto) 0.23 K/uL (0.11-0.59); Monocytes % (auto) 3.2 %; Neutrophils # (auto) 4.75 K/uL (1.4-6.5); Neutrophils % (auto) 67.1 %; Platelet Count 306 K/uL (130-400); RDW Coefficient of Variation 12.2 % (11.5-14.5); RDW Standard Deviation 41.2 fL (36.4-46.3); Red Blood Count 4.82 M/uL (4.2-5.4); White Blood Count 7.08 K/uL (4.8-10.8)
[2020-10-28] MEDS ORDERED: NITROGLYCERIN SL 0.4 MG/TAB TAB SL STA ×3 (06:39→07:28)
[2020-10-28] MEDS ORDERED: ASPIRIN 81 MG CHEW PO STA (06:39)
[2020-10-28 06:44] LABS: Appearance Urine Clear (Clear); Bilirubin Urine Negative (Negative); Blood Urine Negative (Negative); Color Urine Yellow; Glucose Urine UA Negative (Negative); Ketones Urine Negative (Negative); Leukocyte Esterase Urine Negative (Negative); Nitrite Urine Negative (Negative); Protein Urine Negative (Negative); Specific Gravity Urine 1.005 (1.000-1.030); Urobilinogen Urine Negative (Negative)
--- NOTE | 2020-10-28 06:46 | Emergency Department Note ---
History of Present Illness General Chief complaint: Hypertension Stated complaint: BP HIGH,EDUARDO,CHEST TIGHT,JAW PAIN,BK PAIN,SHAKY Time Seen by Provider: 10/28/20 06:28 Source: patient Mode of arrival: ambulatory Limitations: no limitations History of Present Illness This patient is a 65-year-old female who comes in complaining of chest pain and several other complaints including high blood pressure. She has not felt well for several days she had a headache recently and was started on methylprednisolone. She said her blood pressures been running high. Around 3:30 in the morning she woke up and she had some chest pressure that radiated into her jaw. She said it felt like a heaviness in her heart was beating fast for her. She said her ears were bright red and she took her blood pressure was in the 160s to 180s range with the highest 182/108. She still has a 3 out of 10 chest pressure. She says she just does not feel well. She has pain in her jaw and neck as well. No history of similar complaints. No history of cardiac d isease. Home Medications Medication Instructions Recorded Confirmed Type albuterol sulfate 2.5 mg INHALATION Q4H PRN 05/30/18 10/28/20 History albuterol sulfate [Ventolin HFA] 2 puff INHALATION Q4H PRN 05/30/18 10/28/20 History cholecalciferol (vitamin D3) 2,000 unit PO QAM 05/30/18 10/28/20 History [Vitamin D3] docusate sodium 200 mg PO QAM 05/30/18 10/28/20 History sodium chloride [Savanna Nasal] 1 spray INTRANASAL DIRECTED PRN 05/30/18 10/28/20 History valacyclovir 2,000 mg PO DAILY PRN 05/30/18 10/28/20 History psyllium husk [Metamucil] 0.52 g PO Q2D 08/03/18 10/28/20 History montelukast [Singulair] 10 mg PO HS 08/11/18 10/28/20 History azelastine-fluticasone 1 spray INTRANASAL HS 10/22/18 10/28/20 History ezetimibe [Zetia] 10 mg PO QAM 10/22/18 10/28/20 History Align 4 mg PO QAM 11/24/18 10/28/20 History cetirizine-pseudoephedrine 1 tab PO QAM 10/06/19 10/28/20 History [Zyrtec-D] diphenhydramine HCl [Benadryl 25 mg PO HS 10/24/20 10/28/20 History Allergy] ibuprofen [Advil] 200 mg PO Q6H PRN 10/24/20 10/28/20 History methylprednisolone See Rx Instructions .ROUTE 10/24/20 10/28/20 Rx .COMPLEX #21 ea ondansetron HCl [Zofran] 4 mg PO TID PRN 5 Days #15 tab 10/24/20 10/28/20 Rx Theraworx Relief 1 applic TOPICAL DAILY PRN 10/28/20 10/28/20 History Allergies Allergy/AdvReac Type Severity Reaction Status Date / Time Penicillins Allergy Severe edema of Verified 10/28/20 07:23 face, tongue, and lips. Rash colestipol Allergy Intermediate Leg cramps Verified 10/28/20 07:23 fexofenadine Allergy Intermediate Tachycardia Verified 10/28/20 07:23 niacin Allergy Intermediate Leg cramps Verified 10/28/20 07:23 terfenadine Allergy Intermediate JITTERY Verified 10/28/20 07:23 astemizole Allergy Mild JITTERY Verified 10/28/20 07:23 levofloxacin Allergy Mild Jittery Verified 10/28/20 07:23 loratadine Allergy Mild JITTERY Verified 10/28/20 07:23 Sulfa (Sulfonamide Allergy Mild Rash Verified 10/28/20 07:23 Antibiotics) sulfamethoxazole Allergy Mild Rash Verified 10/28/20 07:23 cefuroxime Allergy Unknown CAN'T Verified 10/28/20 07:23 REMEMBER Alvfimp-Wrn-Wqd Reductase AdvReac Unknown leg cramps Verified 10/28/20 07:23 Inhibitor Past Med/Surg History Medical History (Updated 10/28/20 @ 09:18 by Eulogio Nagy) Abdominal adhesions Asthma, mild persistent last used PRN inh 06/2018 Bradycardia asymptomatic. Environmental allergies Fibromyalgia Finger laceration GERD (gastroesophageal reflux disease) Hiatal hernia History of kidney stones Hx of breast cancer RIGHT, s/p lumpectomy x 2 + XRT. 2017 Hyperlipidemia IBS (irritable bowel syndrome) Nasal congestion MARTY (obstructive sleep apnea) no device, was never prescribed a CPAP, was told not severe enough. Pre-diabetes Temporomandibular joint disorder Jaw has never locked. Tinnitus Surgical History (Updated 10/28/20 @ 08:28 by Eulogio Nagy) H/O laparoscopy [employer]/adhesions H/O rectal sphincterotomy H/O: knee surgery "L knee; remove med/lateral cartilage performed by 2010 " History of anesthesia reaction urinary retention requiring catheterization and spinal headaches after epidurals History of ankle surgery RIGHT History of appendectomy History of breast biopsy History of section X2 History of cholecystectomy History of colonoscopy History of cystoscopy 2019 - cyst removed; [facility] @ [facility] History of esophagogastroduodenoscopy (EGD) History of hysterectomy "1 ovary remains; 1994" History of hysterectomy with unilateral oophorectomy History of lumpectomy of right breast History of tonsillectomy and adenoidectomy History of tonsillectomy and adenoidectomy History of total left knee replacement (TKR) History of tubal ligation Hx of right knee surgery S/P scar revision (12/08/18) Abdominal Scar Revision Family History (Updated 10/28/20 @ 08:33 by Eulogio Nagy) Mother , age 77 from sepsis Valvular heart disease s/p valve replacement AAA (abdominal aortic aneurysm) Diabetes Father , age 82 COPD (chronic obstructive pulmonary disease) Coronary heart disease multiple stents Hyperlipidemia Lung cancer Aunt , maternal aunt Coronary heart disease Uncle , maternal uncle Hx of CABG Sister Breast cancer Lung cancer Other Heart disease Social History (Updated 10/28/20 @ 08:34 by Eulogio Nagy) Smoking Status: Never smoker Second Hand Exposure: No; Hx Alcohol Use: No Hx Substance Use: No Preferred Language: Senegalese Communication Ability: Effective Visual Impairment: No Limitations 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 Beliefs That Will Affect Care: None marital status: marital status details: 3x's Current Living Situation: Spouse Current Living Situation Comment: Raghav Black current occupational status: retired How many Children do You have: 5 How many Children do You have Comment: 2 biological sons; other children are step-kids Other Information That Helps Us Care for You: No other: 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, 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 @ [employer] following career in [employer] Feels Safe at Home: Yes Safety Concerns: Feels Safe At This Time Assistive Devices: Glasses Review of Systems A total of 10 systems reviewed and were otherwise negative Physical Exam Vital Signs Vital Signs - 24 hr 10/28/20 06:01 10/28/20 06:10 10/28/20 06:12 Temperature 36.4 C L Temperature Source Oral Pulse Rate 72 70 68 Pulse Rate from SpO2 Sensor 68 68 Respiratory Rate 18 21 17 Respiratory Effort / Characteristics Non-Labored Spontaneous Blood Pressure 165/94 H 211/129 H Blood Pressure [Right Arm] Blood Pressure Mean 117 156 Blood Pressure Mean [Right Arm] Blood Pressure Position [Right Arm] Pulse Oximetry 97 98 97 Oxygen Delivery Method Room Air Room Air Sepsis Recent Fever Within 48 Hours No Sepsis New/Unexplained Change in Mental Status No Sepsis Action Taken by Nursing No Action Required 10/28/20 06:15 10/28/20 06:19 10/28/20 06:30 Temperature Temperature Source Pulse Rate 65 68 Pulse Rate from SpO2 Sensor 65 69 Respiratory Rate 16 26 H Respiratory Effort / Characteristics Blood Pressure Blood Pressure [Right Arm] 188/108 H Blood Pressure Mean Blood Pressure Mean [Right Arm] 134 Blood Pressure Position [Right Arm] Sitting Pulse Oximetry 97 96 Oxygen Delivery Method Sepsis Recent Fever Within 48 Hours Sepsis New/Unexplained Change in Mental Status Sepsis Action Taken by Nursing 10/28/20 07:00 10/28/20 07:19 10/28/20 07:30 Temperature Temperature Source Pulse Rate 66 68 64 Pulse Rate from SpO2 Sensor 64 65 68 Respiratory Rate 16 22 22 Respiratory Effort / Characteristics Blood Pressure 180/118 H 194/118 H 172/97 H Blood Pressure [Right Arm] Blood Pressure Mean 138 143 122 Blood Pressure Mean [Right Arm] Blood Pressure Position [Right Arm] Pulse Oximetry 98 95 96 Oxygen Delivery Method Sepsis Recent Fever Within 48 Hours Sepsis New/Unexplained Change in Mental Status Sepsis Action Taken by Nursing 10/28/20 07:45 10/28/20 08:00 10/28/20 08:15 Temperature Temperature Source Pulse Rate 63 55 L 58 L Pulse Rate from SpO2 Sensor 61 55 L 60 Respiratory Rate 24 21 20 Respiratory Effort / Characteristics Blood Pressure 195/120 H 173/111 H 184/114 H Blood Pressure [Right Arm] Blood Pressure Mean 145 131 137 Blood Pressure Mean [Right Arm] Blood Pressure Position [Right Arm] Pulse Oximetry 94 95 97 Oxygen Delivery Method Sepsis Recent Fever Within 48 Hours Sepsis New/Unexplained Change in Mental Status Sepsis Action Taken by Nursing 10/28/20 08:30 10/28/20 08:45 10/28/20 08:48 Temperature Temperature Source Pulse Rate 62 59 L 55 L Pulse Rate from SpO2 Sensor 60 60 50 L Respiratory Rate 23 23 16 Respiratory Effort / Characteristics Blood Pressure 202/124 H 194/124 H 167/93 H Blood Pressure [Right Arm] Blood Pressure Mean 150 147 117 Blood Pressure Mean [Right Arm] Blood Pressure Position [Right Arm] Pulse Oximetry 98 98 95 Oxygen Delivery Method Sepsis Recent Fever Within 48 Hours Sepsis New/Unexplained Change in Mental Status Sepsis Action Taken by Nursing 10/28/20 08:51 10/28/20 09:00 Temperature Temperature Source Pulse Rate 66 60 Pulse Rate from SpO2 Sensor 61 59 L Respiratory Rate 20 23 Respiratory Effort / Characteristics Blood Pressure 161/77 H 188/106 H Blood Pressure [Right Arm] Blood Pressure Mean 105 133 Blood Pressure Mean [Right Arm] Blood Pressure Position [Right Arm] Pulse Oximetry 94 96 Oxygen Delivery Method Sepsis Recent Fever Within 48 Hours Sepsis New/Unexplained Change in Mental Status Sepsis Action Taken by Nursing General: Well developed well nourished middle-aged female who appears in no acute distress, breathing comfortably on room air. Normal speech HEENT: Normal cephalic atraumatic. Pupils are equal round and reactive to light. Extraocular movements are intact. Oropharynx is pink with moist mucous membranes. No swelling of the mouth lips or tongue. Neck: Supple with a midline trachea. No meningeal signs or stiffness, no JVD or bruits. No Stridor. Chest: Clear to auscultation bilaterally. No wheezes or rhonchi. No increased work of breathing. Heart: Regular rate and rhythm without murmurs or gallops. Abdomen: Soft nontender, nondistended without rebound guarding or rigidity. Extremities: No cyanosis clubbing or edema. No calf tenderness or assymetry Spine/Back. Non tender to palpation. No CVA tenderness Skin: Good turgor without rashes. Neurologic exam: Cranial nerves two through 12 are intact. Motor and sensation are intact and symmetrical throughout. Course Administered Medications Docusate Sodium (Docusate Sodium 100 Mg Cap) 200 mg PO QAM [facility] Stop: 11/27/20 10:17 Last Admin: 10/28/20 10:57 Dose: Not Given Documented by: [id number] Ezetimibe (Ezetimibe 10 Mg Tablet) 10 mg PO QAM [facility] Stop: 11/27/20 10:17 Last Admin: 10/28/20 10:57 Dose: Not Given Documented by: [id number] Lactobacillus Acidoph/Casei/Rhamnos (Advanced Probiotic 1250 Mg Capsule) 2 cap PO [facility] Stop: 11/27/20 10:44 Last Admin: 10/28/20 10:57 Dose: Not Given Documented by: [id number] Miscellaneous (Dymista~Order Awaiting Action) 1 ea N/A QS [facility] Stop: 11/27/20 10:59 Last Admin: 10/28/20 11:01 Dose: Not Given Documented by: [id number] Nitroglycerin (Nitroglycerin 2% Ointment 30gm Tube) 1 inch EXT Q6 [facility] Stop: 11/27/20 11:59 Last Admin: 10/28/20 12:26 Dose: 1 inch Documented by: [id number] Vitamin D (Cholecalciferol 1,000 Units 25 Mcg Tab) 2,000 units PO [facility] Stop: 11/27/20 10:17 Last Admin: 10/28/20 10:56 Dose: Not Given Documented by: [id number] Discontinued Medications Amlodipine Besylate (Amlodipine Besylate 5 Mg Tab) 5 mg PO NOW STA Stop: 10/28/20 09:11 Last Admin: 10/28/20 09:11 Dose: Not Given Documented by: [id number] Amlodipine Besylate (Amlodipine Besylate 5 Mg Tab) Confirm Administered Dose 5 mg .ROUTE .STK-MED ONE Stop: 10/28/20 09:05 Last Admin: 10/28/20 09:09 Dose: 5 mg Documented by: [id number] Aspirin (Aspirin 81 Mg Chew) 324 mg PO NOW STA Stop: 10/28/20 06:40 Last Admin: 10/28/20 06:46 Dose: 324 mg Documented by: [id number] Nitroglycerin/Dextrose (Nitroglycerin/D5w 100 Mcg/Ml) 250 mls @ 3 mls/hr IV .Q24H [facility]; Protocol Stop: 11/27/20 08:44 Last Admin: 10/28/20 11:15 Dose: Not Given Documented by: [id number] Ioversol (Optiray 350 500ml) 117 ml IV ONCE ONE Stop: 10/28/20 10:00 Last Admin: 10/28/20 09:59 Dose: 117 ml Documented by: [id number] Nitroglycerin (Nitroglycerin Sl 0.4 Mg/Tab Tab) 0.4 mg SL NOW STA Stop: 10/28/20 06:40 Last Admin: 10/28/20 06:46 Dose: 0.4 mg Documented by: [id number] Nitroglycerin (Nitroglycerin Sl 0.4 Mg/Tab Tab) 0.4 mg SL NOW STA Stop: 10/28/20 07:16 Last Admin: 10/28/20 07:20 Dose: 0.4 mg Documented by: [id number] Nitroglycerin (Nitroglycerin Sl 0.4 Mg/Tab Tab) 0.4 mg SL NOW STA Stop: 10/28/20 07:29 Last Admin: 10/28/20 11:15 Dose: Not Given Documented by: [id number] Nitroglycerin (Nitroglycerin 2% Ointment 30gm Tube) 0.5 inch EXT NOW ONE Stop: 10/28/20 07:39 Last Admin: 10/28/20 07:51 Dose: 0.5 inch Documented by: [id number] Medical Decision Making Differential Diagnosis Hypertension, acute coronary syndrome, arrhythmia, aortic pathology, PE, CHF, electrolyte or metabolic abnormality, anxiety, fibromyalgia, infection, Covid Medical Records Attestation: I reviewed the patient's medical records. Home Medications Current Medication List: was personally reviewed by me Laboratory Data Attestation: I reviewed the patient's lab results. Result diagrams: 10/28/20 06:14 10/28/20 06:14 Lab Results 10/28/20 10/28/20 10/28/20 Range/Units 06:14 06:14 06:14 WBC 7.08 (4.8-10.8) K/uL RBC 4.82 (4.2-5.4) M/uL Hgb 15.7 (12.0-16.0) g/dL Hct 44.5 (37-47) % MCV 92.3 (80-100) fL MCH 32.6 (25-34) pg MCHC 35.3 (32-36) g/dL RDW Std Deviation 41.2 (36.4-46.3) fL RDW Coeff of Shanta 12.2 (11.5-14.5) % Plt Count 306 (130-400) K/uL MPV 9.5 (7.4-10.4) fL Immature Gran % (Auto) 0.3 % Neut % (Auto) 67.1 % Lymph % (Auto) 28.7 % Hanson % (Auto) 3.2 % Eos % (Auto) 0.3 % Baso % (Auto) 0.4 % Neut # (Auto) 4.75 (1.4-6.5) K/uL Lymph # (Auto) 2.03 (1.2-3.4) K/uL Hanson # (Auto) 0.23 (0.11-0.59) K/uL Eos # (Auto) 0.02 (0-0.5) K/uL Baso # (Auto) 0.03 (0-0.2) K/uL Immature Gran # (Auto) 0.02 (0.00-0.02) K/uL ESR (0-30) mm/hr PT (9.0-12.0) Seconds INR (0.9-1.1) APTT (21.0-31.0) Seconds PTT Ratio D-Dimer (0-500) ug/L FEU Sodium 142 (136-145) mmol/L Potassium 4.0 (3.5-5.1) mmol/L Chloride 109 H (98-107) mmol/L Carbon Dioxide 27 (21-32) mmol/L Anion Gap 6.0 (3-11) BUN 14 (7-18) mg/dl Creatinine 0.73 (0.6-1.2) mg/dl Est Cr Clr Drug Dosing 79.2 ml/min Est GFR ( Amer) 100.9 ml/min Est GFR (Non-Af Amer) 87.0 ml/min BUN/Creatinine Ratio 19.9 (10-20) Glucose 119 H (70-99) mg/dl Calcium 9.2 (8.5-10.1) mg/dl Magnesium (1.8-2.4) mg/dl Total Bilirubin 0.6 (0.2-1) mg/dl AST 17 (15-37) U/L ALT 35 (12-78) U/L Alkaline Phosphatase 82 (45-117) U/L Troponin I 0.049 H* (0-0.045) ng/ml C-Reactive Protein (0-0.29) mg/dl Total Protein 7.9 (6.4-8.2) gm/dl Albumin 4.1 (3.4-5.0) gm/dl Globulin 3.8 (2.5-4.0) gm/dl Albumin/Globulin Ratio 1.1 (0.9-2) Urine Color Yellow Urine Appearance Clear (Clear) Urine pH 7.0 (4.5-7.5) Ur Specific [place] 1.005 (1.000-1.030) Urine Protein Negative (Negative) Urine Glucose (UA) Negative (Negative) Urine Ketones Negative (Negative) Urine Blood Negative (Negative) Urine Nitrite Negative (Negative) Urine Bilirubin Negative (Negative) Urine Urobilinogen Negative (Negative) Ur Leukocyte Esterase Negative (Negative) COVID-19 Eval Order SARS-CoV-2 (PCR) (Negative) 10/28/20 10/28/20 10/28/20 Range/Units 06:14 06:14 06:14 WBC (4.8-10.8) K/uL RBC (4.2-5.4) M/uL Hgb (12.0-16.0) g/dL Hct (37-47) % MCV (80-100) fL MCH (25-34) pg MCHC (32-36) g/dL RDW Std Deviation (36.4-46.3) fL RDW Coeff of Shanta (11.5-14.5) % Plt Count (130-400) K/uL MPV (7.4-10.4) fL Immature Gran % (Auto) % Neut % (Auto) % Lymph % (Auto) % Hanson % (Auto) % Eos % (Auto) % Baso % (Auto) % Neut # (Auto) (1.4-6.5) K/uL Lymph # (Auto) (1.2-3.4) K/uL Hanson # (Auto) (0.11-0.59) K/uL Eos # (Auto) (0-0.5) K/uL Baso # (Auto) (0-0.2) K/uL Immature Gran # (Auto) (0.00-0.02) K/uL ESR 8 (0-30) mm/hr PT 9.3 (9.0-12.0) Seconds INR 0.9 (0.9-1.1) APTT 21.1 (21.0-31.0) Seconds PTT Ratio 0.8 D-Dimer 350 (0-500) ug/L FEU Sodium (136-145) mmol/L Potassium (3.5-5.1) mmol/L Chloride (98-107) mmol/L Carbon Dioxide (21-32) mmol/L Anion Gap (3-11) BUN (7-18) mg/dl Creatinine (0.6-1.2) mg/dl Est Cr Clr Drug Dosing ml/min Est GFR ( Amer) ml/min Est GFR (Non-Af Amer) ml/min BUN/Creatinine Ratio (10-20) Glucose (70-99) mg/dl Calcium (8.5-10.1) mg/dl Magnesium 2.5 H (1.8-2.4) mg/dl Total Bilirubin (0.2-1) mg/dl AST (15-37) U/L ALT (12-78) U/L Alkaline Phosphatase (45-117) U/L Troponin I (0-0.045) ng/ml C-Reactive Protein (0-0.29) mg/dl Total Protein (6.4-8.2) gm/dl Albumin (3.4-5.0) gm/dl Globulin (2.5-4.0) gm/dl Albumin/Globulin Ratio (0.9-2) Urine Color Urine Appearance (Clear) Urine pH (4.5-7.5) Ur Specific [place] (1.000-1.030) Urine Protein (Negative) Urine Glucose (UA) (Negative) Urine Ketones (Negative) Urine Blood (Negative) Urine Nitrite (Negative) Urine Bilirubin (Negative) Urine Urobilinogen (Negative) Ur Leukocyte Esterase (Negative) COVID-19 Eval Order SARS-CoV-2 (PCR) (Negative) 10/28/20 10/28/20 10/28/20 Range/Units 06:14 07:12 07:12 WBC (4.8-10.8) K/uL RBC (4.2-5.4) M/uL Hgb (12.0-16.0) g/dL Hct (37-47) % MCV (80-100) fL MCH (25-34) pg MCHC (32-36) g/dL RDW Std Deviation (36.4-46.3) fL RDW Coeff of Shanta (11.5-14.5) % Plt Count (130-400) K/uL MPV (7.4-10.4) fL Immature Gran % (Auto) % Neut % (Auto) % Lymph % (Auto) % Hanson % (Auto) % Eos % (Auto) % Baso % (Auto) % Neut # (Auto) (1.4-6.5) K/uL Lymph # (Auto) (1.2-3.4) K/uL Hanson # (Auto) (0.11-0.59) K/uL Eos # (Auto) (0-0.5) K/uL Baso # (Auto) (0-0.2) K/uL Immature Gran # (Auto) (0.00-0.02) K/uL ESR (0-30) mm/hr PT (9.0-12.0) Seconds INR (0.9-1.1) APTT (21.0-31.0) Seconds PTT Ratio D-Dimer (0-500) ug/L FEU Sodium (136-145) mmol/L Potassium (3.5-5.1) mmol/L Chloride (98-107) mmol/L Carbon Dioxide (21-32) mmol/L Anion Gap (3-11) BUN (7-18) mg/dl Creatinine (0.6-1.2) mg/dl Est Cr Clr Drug Dosing ml/min Est GFR ( Amer) ml/min Est GFR (Non-Af Amer) ml/min BUN/Creatinine Ratio (10-20) Glucose (70-99) mg/dl Calcium (8.5-10.1) mg/dl Magnesium (1.8-2.4) mg/dl Total Bilirubin (0.2-1) mg/dl AST (15-37) U/L ALT (12-78) U/L Alkaline Phosphatase (45-117) U/L Troponin I (0-0.045) ng/ml C-Reactive Protein < 0.29 (0-0.29) mg/dl Total Protein (6.4-8.2) gm/dl Albumin (3.4-5.0) gm/dl Globulin (2.5-4.0) gm/dl Albumin/Globulin Ratio (0.9-2) Urine Color Urine Appearance (Clear) Urine pH (4.5-7.5) Ur Specific [place] (1.000-1.030) Urine Protein (Negative) Urine Glucose (UA) (Negative) Urine Ketones (Negative) Urine Blood (Negative) Urine Nitrite (Negative) Urine Bilirubin (Negative) Urine Urobilinogen (Negative) Ur Leukocyte Esterase (Negative) COVID-19 Eval Order Covid19 at [facility] SARS-CoV-2 (PCR) NEGATIVE (Negative) Imaging Data Attestation: I personally reviewed and interpreted this imaging study as follows: My Impression: Chest x-rayno acute infiltrate, failure, pneumothorax seen. Normal aortic knob. Radiologist's Impression: Chest X-Ray 10/28/20 07:07 XR chest 1V portable CLINICAL HISTORY: chest pain COMPARISON STUDY: Chest CT March 05, 2019. FINDINGS: Lung volumes are normal. Lungs are clear. There is no pneumothorax or pleural effusion. Cardiac size is stable. Mediastinal contours are normal. There is no evidence for pulmonary edema. IMPRESSION: No acute cardiopulmonary findings. ACT 112: Negative or not required by law. Electronically signed by: Hang Tomlin M.D. 10/28/2020 7:33 AM ECG Data Attestation: I personally reviewed and interpreted this ECG as follows: Indication: + chest pain Rate (beats per minute): 65 Rhythm: + normal sinus ECG Intervals/blocks: + Normal QRS, + Normal QT and + Normal [place] ECG [place]: + Normal ECG ST segments: + Nonspecific ST abnormalities ECG Findings: no PACs and no PVCs Comparison ECG Date: no prior available Additional Comments: EKG #2normal sinus rhythm 64 LVH, nonspecific T wave abnormalities. No change compared to EKG #1 MDM Narrative This patient comes in as described above. She was placed on a telemetry monitor room before. She complains of high blood pressure but she also has had chest pressure. She does have a strong family history and has several cardiac risk factors. She was given aspirin 324 mg chewable. Initial EKG shows some nonspecific changes but no definite ischemia. Given her 3 out of 10 chest pressure as well as her elevated high blood pressure she was also given nitroglycerin 1 sublingual which was aimed to treat treat the chest pressure as well as the hypertension. Multiple blood testing was obtained. EKG and chest x-ray obtained. EKG has some nonspecific changes. I did a second EKG and there is no significant change compared to the first. Troponin is mildly elevated 0.04. She did receive aspirin and nitro. The nitroglycerin x2. She felt better after each 1 and had no discomfort after the second so I did cancel the third and ordered 1/2 inch of nitroglycerin paste.. She has no significant electrolyte or metabolic abnormality. Covid testing was negative. Chest x-ray shows no acute infiltrate, failure, pneumothorax. With the nitro, her pressure also did come down and is trending downward with the last one in the 170s over 90s. I do think she needs to be admitted/observe for further inpatient treatment and evaluation. I have consulted Dr. Nagy and the [facility] team to see her in the ED for admission/observation. Tenuous cardiac monitoring: Due to her chest pain, an order was placed in EMR for continuous cardiac monitoring. The patient was noted to be in normal sinus rhythm with a pulse of 65 upon my interpretation Impression & Plan Chest pain, Hypertension, Family history of coronary artery disease, Elevated troponin, Lab test negative for COVID-19 virus Discharge Plan Visit Data Chief Complaint: Hypertension Stated Complaint: BP HIGH,EDUARDO,CHEST TIGHT,JAW PAIN,BK PAIN,SHAKY ED Provider: Quique Peacock Discharge Problem: Chest pain, Hypertension, Family history of coronary artery disease, Elevated troponin, Lab test negative for COVID-19 virus Patient Disposition: Admitted As Inpatient Discharge Instructions Interventions: ED Discharge Assessment Last Done: 10/28/20 09:40 Discharge Problem: Chest pain Qualifiers: Chest pain type: precordial pain Qualified Code(s): R07.2 - Precordial pain Hypertension Qualifiers: Hypertension type: unspecified Qualified Code(s): I10 - Essential (primary) hypertension
[2020-10-28 06:58] LABS: Albumin Globulin Ratio 1.1 (0.9-2); Albumin Level 4.1 gm/dl (3.4-5.0); BUN Creatinine Ratio 19.9 (10-20); Bilirubin,Total 0.6 mg/dl (0.2-1); Calcium 9.2 mg/dl (8.5-10.1); Creatinine Clr Calc Pharmacy 79.2 ml/min; Est GFR (African American) 100.9 ml/min; Globulin 3.8 gm/dl (2.5-4.0); Total Protein 7.9 gm/dl (6.4-8.2)
[2020-10-28 07:13] LABS: Troponin I 0.049 ng/ml (0-0.045)
[2020-10-28 07:15] LABS: D Dimer 350 ug/L FEU (0-500); INR 0.9 (0.9-1.1); Partial Thromboplastin Ratio 0.8; Partial Thromboplastin Time 21.1 Seconds (21.0-31.0); Prothrombin Time 9.3 Seconds (9.0-12.0)
--- NOTE | 2020-10-28 07:35 | XRay Report ---
XR chest 1V portable CLINICAL HISTORY: chest pain COMPARISON STUDY: Chest CT March 05, 2019. FINDINGS: Lung volumes are normal. Lungs are clear. There is no pneumothorax or pleural effusion. Car diac size is stable. Mediastinal contours are normal. There is no evidence for pulmonary edema. IMPRESSION: No acute cardiopulmonary findings. ACT 112: Negative or not required by law. Electronically signed by: Hang Tomlin M.D. 10/28/2020 7:33 AM
[2020-10-28] MEDS ORDERED: NITROGLYCERIN 2% OINTMENT 30GM TUBE EXT ONE (07:38)
--- NOTE | 2020-10-28 07:46 | History & Physical Report ---
Date of Service October 28, 2020 Assessment & Plan (1) Hypertensive emergency: SEVERE HTN at time of presentation with end-organ symptoms including headache, chest discomfort/dyspnea, etc. All symptoms improved in the ER with lowering of her blood pressure. Gave amlodipine 5mg x 1 in ER, and will continue a standing dose of 5mg daily thereafter. Will continue topical nitrates for BP control as well. At the conclusion of my ER assessment her systolic BP was ranging 160s to 180s Avoid dropping her BP too fast - again systolics in the 160-170 range, at least for the remainder of the day, would be satisfactory. (2) Chest pain: Likely 2nd to her HTN emergency. I cannot rule out ACS given her mild troponin elevation at presentation. Chest pain improved with nitrates as well as reduction in her severely elevated BP. plan - serial troponins. echo. ekg in am. cardiology consultation - stress test this admission vs cath vs other? continue topical nitrates. (3) Elevated troponin: At minimum the elevated troponin is myocardial demand ischemia in setting of her HTN emergency. I cannot rule out an ACS given the chest pain and improved chest symptoms with nitrates. Serial troponins. Continue daily aspirin. Echo, cardiology consultation requested, etc. Treat the high blood pressure. (4) Occipital headache: severe. CT head on 10/24 during prior ER visit was negative. Will check esr and crp to help rule out temporal arteritis. Check CTA head & neck - r/o aneurysm, dissection, etc. If all of the above is negative -- severe tension headache? TMJ? due to severely elevated BP? other? she has no prior h/o migraine. stop steroids - headache has been refractory to such, and BPs could be worsened by the steroids. treat symptoms, treat the blood pressure, etc. (5) Hypertension: a review of the medical record shows numerous high blood pressure readings dating back to 2018. There is enough data to confirm a diagnosis of essential HTN. started amlodipine 5mg daily. see above in "HTN emergency." (6) Family history of coronary artery disease: noted. (7) Hyperlipidemia: check lipid profile in am. only takes zetia. she is statin intolerant. (8) Pre-diabetes: check a1c in am to quantity severity of pre-DM or even early T2DM. (9) Asthma, mild persistent: continue singulair 10mg daily. albuterol prn. she is not on ICS therapy. patient reports chronic TRUONG which she has been attributing to her asthma. however, when she takes albuterol for the dyspnea, she notices no improvement. dyspnea may be cardiac in origin - see above discussion. if cardiac work-up ultimately is negative then strongly consider referral to pulmonary for PFTs. d-dimer noted to be negative today. (10) MARTY (obstructive sleep apnea): not on Rx for such (11) Allergic rhinitis: continue home medications. (12) Chronic dyspnea: see above in "asthma". cardiac work-up in progress. if cardiac work-up is negative would -- 1. refer to pulmonary for PFTs 2. consider PE work-up obtain echo while here. (13) DVT prophylaxis: lovenox 40mg daily if CTA head/neck are negative History of Present Illness Chief Complaint: headache, chest pain, shortness of breath Primary Care Provider: Wilma Martinez 65yo female presents with posterior occipital headache starting Thursday of this week. [place] "like an ice pick." Was using advil, excedrin migraine, and tylenol without relief of symptoms. She is not one to get headaches or migraines. She also had jaw pain on the right side with the headache. Never had frontal headache or temporal headache. No nausea or emesis. No pain with chewing. Came to ER at [facility] on Thursday. CT head negative. Blood pressure was elevated. Was given IV toradol and IV decadron - headache resolved. Was d/c home with medrol dose pack. Pain returned on - pain in occipital location was "not as bad." On Thursday visited her dentist - was told it was NOT headache from TMJ or her teeth. On Thursday she felt poorly "all day." She continued with occipital headache but now it was radiating to both temples. Yesterday she took several blood pressures - systolics all 160s to 180s. She felt like she was "breathing heavy" at rest intermittently throughout the day yesterday. At 0330 this am she was awoken by her "heart rating". She checked her pulse and it was 80. About the same time she had chest pressure (not a pain). It was central in location. Her jaw was hurting b/l. Discomforts did NOT radiate into her arms but did radiate to the upper back. Had mild nausea. No diaphoresis. Her ears were "very red" as well during this spell at 0330. She has noted dyspnea on exertion with walking and doing spacer type bar and segment over the last few months. This was attributed to her asthma. She has tried her albuterol inhaler for the dyspnea but it hasn't helped. [facility] her [facility]. Drove herself to the hospital this am by private car. Got aspirin in the ER along with nitro SL x 2 followed by nitropaste - all symptoms better. Chest discomfort/pressure is gone. Breathing is more comfortable. BP improved from >200 to about 180 systolically. Allergies Allergy/AdvReac Type Severity Reaction Status Date / Time Penicillins Allergy Severe edema of Verified 10/28/20 07:23 face, tongue, and lips. Rash colestipol Allergy Intermediate Leg cramps Verified 10/28/20 07:23 fexofenadine Allergy Intermediate Tachycardia Verified 10/28/20 07:23 niacin Allergy Intermediate Leg cramps Verified 10/28/20 07:23 terfenadine Allergy Intermediate JITTERY Verified 10/28/20 07:23 astemizole Allergy Mild JITTERY Verified 10/28/20 07:23 levofloxacin Allergy Mild Jittery Verified 10/28/20 07:23 loratadine Allergy Mild JITTERY Verified 10/28/20 07:23 Sulfa (Sulfonamide Allergy Mild Rash Verified 10/28/20 07:23 Antibiotics) sulfamethoxazole Allergy Mild Rash Verified 10/28/20 07:23 cefuroxime Allergy Unknown CAN'T Verified 10/28/20 07:23 REMEMBER [id number] Reductase AdvReac Unknown leg cramps Verified 10/28/20 07:23 Inhibitor Home Medications Medication Instructions Recorded Confirmed Type albuterol sulfate 2.5 mg INHALATION Q4H PRN 05/30/18 10/28/20 History albuterol sulfate [Ventolin HFA] 2 puff INHALATION Q4H PRN 05/30/18 10/28/20 History cholecalciferol (vitamin D3) 2,000 unit PO QAM 05/30/18 10/28/20 History [Vitamin D3] docusate sodium 200 mg PO QAM 05/30/18 10/28/20 History sodium chloride [[place] Nasal] 1 spray INTRANASAL DIRECTED PRN 05/30/18 10/28/20 History valacyclovir 2,000 mg PO DAILY PRN 05/30/18 10/28/20 History psyllium husk [Metamucil] 0.52 g PO Q2D 08/03/18 10/28/20 History montelukast [Singulair] 10 mg PO HS 08/11/18 10/28/20 History azelastine-fluticasone 1 spray INTRANASAL HS 10/22/18 10/28/20 History ezetimibe [Zetia] 10 mg PO QAM 10/22/18 10/28/20 History Align 4 mg PO QAM 11/24/18 10/28/20 History cetirizine-pseudoephedrine 1 tab PO QAM 10/06/19 10/28/20 History [Zyrtec-D] diphenhydramine HCl [Benadryl 25 mg PO HS 10/24/20 10/28/20 History Allergy] ibuprofen [Advil] 200 mg PO Q6H PRN 10/24/20 10/28/20 History methylprednisolone See Rx Instructions .ROUTE 10/24/20 10/28/20 Rx .COMPLEX #21 ea ondansetron HCl [Zofran] 4 mg PO TID PRN 5 Days #15 tab 10/24/20 10/28/20 Rx Theraworx Relief 1 applic TOPICAL DAILY PRN 10/28/20 10/28/20 History Past Med/Surg History Medical History Abdominal adhesions Asthma, mild persistent last used PRN inh 06/2018 Bradycardia asymptomatic. Environmental allergies Fibromyalgia Finger laceration GERD (gastroesophageal reflux disease) Hiatal hernia History of kidney stones Hx of breast cancer RIGHT, s/p lumpectomy x 2 + XRT. 2017 Hyperlipidemia IBS (irritable bowel syndrome) Nasal congestion MARTY (obstructive sleep apnea) no device, was never prescribed a CPAP, was told not severe enough. Pre-diabetes Temporomandibular joint disorder Jaw has never locked. 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 H/O rectal sphincterotomy H/O: knee surgery "L knee; remove med/lateral cartilage performed by 2010 " History of anesthesia reaction urinary retention requiring catheterization and spinal headaches after epidurals History of ankle surgery RIGHT History of appendectomy History of breast biopsy History of section X2 History of cholecystectomy History of colonoscopy History of cystoscopy 2019 - cyst removed; [facility] @ [facility] History of esophagogastroduodenoscopy (EGD) History of hysterectomy "1 ovary remains; 1994" History of hysterectomy with unilateral oophorectomy History of lumpectomy of right breast History of tonsillectomy and adenoidectomy History of tonsillectomy and adenoidectomy History of total left knee replacement (TKR) History of tubal ligation Hx of right knee surgery S/P scar revision (12/08/18) Abdominal Scar Revision Family History Mother , age 77 from sepsis Valvular heart disease s/p valve replacement AAA (abdominal aortic aneurysm) Diabetes Father , age 82 COPD (chronic obstructive pulmonary disease) Coronary heart disease multiple stents Hyperlipidemia Lung cancer Aunt , maternal aunt Coronary heart disease Uncle , maternal uncle Hx of CABG Sister Breast cancer Lung cancer Other Heart disease Social History Smoking Status: Never smoker Second Hand Exposure: No; Hx Alcohol Use: No Hx Substance Use: No Preferred Language: Syriac Communication Ability: Effective Visual Impairment: No Limitations Reformatory Attendant Required: No Beliefs That Will Affect Care: None marital status: marital status details: 3x's Current Living Situation: Spouse Current Living Situation Comment: Raghav Black current occupational status: retired How many Children do You have: 5 How many Children do You have Comment: 2 biological sons; other children are step-kids Other Information That Helps Us Care for You: No other: 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, 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 @ [employer] following career in [employer] Feels Safe at Home: Yes Safety Concerns: Feels Safe At This Time Assistive Devices: Glasses Review of Systems Constitutional: + fatigue and + anorexia (since Thursday ); no fever, no chills and no body aches Eyes: no worsening vision Ear, Nose, Mouth, Throat: no dysphagia loss of taste/smell Respiratory: + dyspnea, + dyspnea on exertion and + wheezing; no cough Cardiovascular: as per Subjective / HPI and + chest pain; no edema Gastrointestinal: + heartburn, + nausea and + diarrhea/loose stools (over last few days ); no abdominal pain and no blood in stools Genitourinary: + urinary frequency; no dysuria Musculoskeletal: + back pain Integumentary: no rash Neurologic: + headache(s); no loss of sensation and no dizziness Psychiatric: no depression and no anxiety Endocrine: pre-diabetic Hematologic / Lymphatic: no easy bleeding and no easy bruising Physical Exam Constitutional: well developed and well nourished; no acute distress and no altered mental status Eyes: PERRL and EOM intact bilaterally ENMT: external ear and nose normal, oropharynx normal Ears: no hearing impairment and no TM abnormality Neck: trachea midline, no thyromegaly Respiratory: normal respiratory effort, lungs clear to auscultation Cardiovascular: Rate/Rhythm: regular rate and regular rhythm Heart Sounds: normal S1 and normal S2; no murmur Vessels: posterior tibial pulses present and dorsalis pedis pulses present; no JVD Extremities: no edema Chest (Breasts): Additional Comments: no reproducible chest wall pain to palpation Gastrointestinal (Abdomen): normal bowel sounds, soft, nontender, no hepatosplenomegaly Musculoskeletal: no cyanosis or clubbing, extremities motor strength 5/5 Skin: no rashes, warm and dry Neurologic: deep tendon reflexes 2+ bilaterally and moves all extremities Psychiatric: A+Ox3, euthymic affect Lymphatic: no cervical lymphadenopathy Results & Data Results & Data ([facility]) Vital Signs (Past 12 Hours) Vital Signs Temp Pulse Resp BP BP Pulse Ox 10/28/20 07:30 64 22 172/97 H 96 10/28/20 07:19 68 22 194/118 H 95 10/28/20 07:00 66 16 180/118 H 98 10/28/20 06:30 68 26 H 96 10/28/20 06:19 188/108 H 10/28/20 06:15 65 16 97 10/28/20 06:12 68 17 97 10/28/20 06:10 70 21 211/129 H 98 10/28/20 06:01 36.4 C L 72 18 165/94 H 97 Laboratory Results Laboratory Results - last 24 hr 10/28/20 10/28/20 10/28/20 06:14 06:14 06:14 WBC 7.08 RBC 4.82 Hgb 15.7 Hct 44.5 MCV 92.3 MCH 32.6 MCHC 35.3 RDW Std Deviation 41.2 RDW Coeff of Shanta 12.2 Plt Count 306 MPV 9.5 Immature Gran % (Auto) 0.3 Neut % (Auto) 67.1 Lymph % (Auto) 28.7 Tompkins % (Auto) 3.2 Eos % (Auto) 0.3 Baso % (Auto) 0.4 Neut # (Auto) 4.75 Lymph # (Auto) 2.03 Tompkins # (Auto) 0.23 Eos # (Auto) 0.02 Baso # (Auto) 0.03 Immature Gran # (Auto) 0.02 ESR PT INR APTT PTT Ratio D-Dimer Sodium 142 Potassium 4.0 Chloride 109 H Carbon Dioxide 27 Anion Gap 6.0 BUN 14 Creatinine 0.73 Est Cr Clr Drug Dosing 79.2 Est GFR ( Amer) 100.9 Est GFR (Non-Af Amer) 87.0 BUN/Creatinine Ratio 19.9 Glucose 119 H POC Glucose Calcium 9.2 Magnesium Total Bilirubin 0.6 AST 17 ALT 35 Alkaline Phosphatase 82 Troponin I 0.049 H* C-Reactive Protein Total Protein 7.9 Albumin 4.1 Globulin 3.8 Albumin/Globulin Ratio 1.1 Urine Color Yellow Urine Appearance Clear Urine pH 7.0 Ur Specific Hungry Horse 1.005 Urine Protein Negative Urine Glucose (UA) Negative Urine Ketones Negative Urine Blood Negative Urine Nitrite Negative Urine Bilirubin Negative Urine Urobilinogen Negative Ur Leukocyte Esterase Negative Nasal Screen MRSA (PCR) COVID-19 Eval Order SARS-CoV-2 (PCR) Hepatitis C Ab Screen 10/28/20 10/28/20 10/28/20 06:14 06:14 06:14 WBC RBC Hgb Hct MCV MCH MCHC RDW Std Deviation RDW Coeff of Shanta Plt Count MPV Immature Gran % (Auto) Neut % (Auto) Lymph % (Auto) Tompkins % (Auto) Eos % (Auto) Baso % (Auto) Neut # (Auto) Lymph # (Auto) Tompkins # (Auto) Eos # (Auto) Baso # (Auto) Immature Gran # (Auto) ESR 8 PT 9.3 INR 0.9 APTT 21.1 PTT Ratio 0.8 D-Dimer 350 Sodium Potassium Chloride Carbon Dioxide Anion Gap BUN Creatinine Est Cr Clr Drug Dosing Est GFR ( Amer) Est GFR (Non-Af Amer) BUN/Creatinine Ratio Glucose POC Glucose Calcium Magnesium 2.5 H Total Bilirubin AST ALT Alkaline Phosphatase Troponin I C-Reactive Protein Total Protein Albumin Globulin Albumin/Globulin Ratio Urine Color Urine Appearance Urine pH Ur Specific Hungry Horse Urine Protein Urine Glucose (UA) Urine Ketones Urine Blood Urine Nitrite Urine Bilirubin Urine Urobilinogen Ur Leukocyte Esterase Nasal Screen MRSA (PCR) COVID-19 Eval Order SARS-CoV-2 (PCR) Hepatitis C Ab Screen 10/28/20 10/28/20 10/28/20 06:14 07:12 07:12 WBC RBC Hgb Hct MCV MCH MCHC RDW Std Deviation RDW Coeff of Shanta Plt Count MPV Immature Gran % (Auto) Neut % (Auto) Lymph % (Auto) Tompkins % (Auto) Eos % (Auto) Baso % (Auto) Neut # (Auto) Lymph # (Auto) Tompkins # (Auto) Eos # (Auto) Baso # (Auto) Immature Gran # (Auto) ESR PT INR APTT PTT Ratio D-Dimer Sodium Potassium Chloride Carbon Dioxide Anion Gap BUN Creatinine Est Cr Clr Drug Dosing Est GFR ( Amer) Est GFR (Non-Af Amer) BUN/Creatinine Ratio Glucose POC Glucose Calcium Magnesium Total Bilirubin AST ALT Alkaline Phosphatase Troponin I C-Reactive Protein < 0.29 Total Protein Albumin Globulin Albumin/Globulin Ratio Urine Color Urine Appearance Urine pH Ur Specific Hung[place] Horse Urine Protein Urine Glucose (UA) Urine Ketones Urine Blood Urine Nitrite Urine Bilirubin Urine Urobilinogen Ur Leukocyte Esterase Nasal Screen MRSA (PCR) COVID-19 Eval Order Covid19 at [facility] SARS-CoV-2 (PCR) NEGATIVE Hepatitis C Ab Screen 10/28/20 10/28/20 10/28/20 11:05 12:03 12:03 WBC RBC Hgb Hct MCV MCH MCHC RDW Std Deviation RDW Coeff of Shanta Plt Count MPV Immature Gran % (Auto) Neut % (Auto) Lymph % (Auto) Tompkins % (Auto) Eos % (Auto) Baso % (Auto) Neut # (Auto) Lymph # (Auto) [place]pkins # (Auto) Eos # (Auto) Baso # (Auto) Immature Gran # (Auto) ESR PT INR APTT PTT Ratio D-Dimer Sodium Potassium Chloride Carbon Dioxide Anion Gap BUN Creatinine Est Cr Clr Drug Dosing Est GFR ( Amer) Est GFR (Non-Af Amer) BUN/Creatinine Ratio Glucose POC Glucose 103 H Calcium Magnesium Total Bilirubin AST ALT Alkaline Phosphatase Troponin I 0.053 H* C-Reactive Protein Total Protein Albumin Globulin Albumin/Globulin Ratio Urine Color Urine Appearance Urine pH Ur Specific Hung[place] Horse Urine Protein Urine Glucose (UA) Urine Ketones Urine Blood Urine Nitrite Urine Bilirubin Urine Urobilinogen Ur Leukocyte Esterase Nasal Screen MRSA (PCR) COVID-19 Eval Order SARS-CoV-2 (PCR) Hepatitis C Ab Screen Pending 10/28/20 10/28/20 10/28/20 16:25 18:02 23:49 WBC RBC Hgb Hct MCV MCH MCHC RDW Std Deviation RDW Coeff of Shanta Plt Count MPV Immature Gran % (Auto) Neut % (Auto) Lymph % (Auto) Tompkins % (Auto) Eos % (Auto) Baso % (Auto) Neut # (Auto) Lymph # (Auto) [place] # (Auto) Eos # (Auto) Baso # (Auto) Immature Gran # (Auto) ESR PT INR APTT PTT Ratio D-Dimer Sodium Potassium Chloride Carbon Dioxide Anion Gap BUN Creatinine Est Cr Clr Drug Dosing Est GFR ( Amer) Est GFR (Non-Af Amer) BUN/Creatinine Ratio Glucose POC Glucose 99 102 H Calcium Magnesium Total Bilirubin AST ALT Alkaline Phosphatase Troponin I 0.046 H* C-Reactive Protein Total Protein Albumin Globulin Albumin/Globulin Ratio Urine Color Urine Appearance Urine pH Ur Specific Hung[place] Horse Urine Protein Urine Glucose (UA) Urine Ketones Urine Blood Urine Nitrite Urine Bilirubin Urine Urobilinogen Ur Leukocyte Esterase Nasal Screen MRSA (PCR) COVID-19 Eval Order SARS-CoV-2 (PCR) Hepatitis C Ab Screen 10/28/20 Unknown WBC RBC Hgb Hct MCV MCH MCHC RDW Std Deviation RDW Coeff of Shanta Plt Count MPV Immature Gran % (Auto) Neut % (Auto) Lymph % (Auto) Tompkins % (Auto) Eos % (Auto) Baso % (Auto) Neut # (Auto) Lymph # (Auto) [place] # (Auto) Eos # (Auto) Baso # (Auto) Immature Gran # (Auto) ESR PT INR APTT PTT Ratio D-Dimer Sodium Potassium Chloride Carbon Dioxide Anion Gap BUN Creatinine Est Cr Clr Drug Dosing Est GFR ( Amer) Est GFR (Non-Af Amer) BUN/Creatinine Ratio Glucose POC Glucose Calcium Magnesium Total Bilirubin AST ALT Alkaline Phosphatase Troponin I C-Reactive Protein Total Protein Albumin Globulin Albumin/Globulin Ratio Urine Color Urine Appearance Urine pH Ur Specific Hung[place] Horse Urine Protein Urine Glucose (UA) Urine Ketones Urine Blood Urine Nitrite Urine Bilirubin Urine Urobilinogen Ur Leukocyte Esterase Nasal Screen MRSA (PCR) Negative COVID-19 Eval Order SARS-CoV-2 (PCR) Hepatitis C Ab Screen Diagnostic Findings Chest X-Ray 10/28/20 07:07 XR chest 1V portable CLINICAL HISTORY: chest pain COMPARISON STUDY: Chest CT March 05, 2019. FINDINGS: Lung volumes are normal. Lungs are clear. There is no pneumothorax or pleural effusion. Cardiac size is stable. Mediastinal contours are normal. There is no evidence for pulmonary edema. IMPRESSION: No acute cardiopulmonary findings. ACT 112: Negative or not required by law. Electronically signed by: Hang Tomlin M.D. 10/28/2020 7:33 AM Head CTA 10/28/20 09:07 CTA ANGIOGRAPHY OF THE HEAD CLINICAL HISTORY: occipital headache, HTN emergency COMPARISON STUDY: Head CT October 24, 2020. TECHNIQUE: Helical axial images of the head were obtained following uneventful intravenous administration of 117 cc of Optiray. Sagittal and coronal reconstructions were viewed as well as maximal intensity projections on an independent 3-D workstation. Automated exposure control was utilized for the study. A dose lowering technique was utilized adhering to the principles of ALARA. CT DOSE: 490.95 mGy.cm FINDINGS: Sensitivity for detection of acute intracranial hemorrhage is diminished on this contrast enhanced exam but none is identified. Ventricular system is normal. Basal cisterns are patent. There are no extra-axial collections. The bilateral M1, M2, A1 and A2 segments are patent. There is no intracranial aneurysm. There is no dissection. No stenosis is identified. No central vessel occlusion is noted. The posterior circulation is also intact. There is no significant calvarial abnormality. IMPRESSION: Unremarkable CTA of the head. No intracranial aneurysm. No central vessel occlusion. ACT 112: Negative or not required by law. Electronically signed by: Hang Tomlin M.D. 10/28/2020 10:20 AM Neck CTA 10/28/20 09:07 CT ANGIOGRAPHY OF THE NECK WITH CONTRAST CLINICAL HISTORY: occipital headache, HTN emergency COMPARISON STUDY: CTA of the neck March 05, 2019. Technique: CT angiography of the carotid and vertebral arteries was obtained using Optiray and 3D reconstruction on an independent workstation. NASCET criteria was utilized. Automated exposure control was utilized for the study. A dose lowering technique was utilized adhering to the principles of ALARA. Findings: Lung apices are clear. There is no cervical lymphadenopathy. No cervical spine fracture is noted. The bilateral common carotid, cervical internal carotid and vertebral arteries are patent. There is no dissection within the major vessels of the neck. No aneurysm within the neck is noted. There is no significant stenosis. IMPRESSION: Unremarkable CTA of the neck. No dissection or stenosis. ACT 112: Negative or not required by law. Electronically signed by: Hang Tomlin M.D. 10/28/2020 10:17 AM EKG - my reading - NSR, no significant ST Code Status & VTE Plan Code Status full VTE Prophylaxis Plan VTE Prophylaxis will be ordered: Yes PG Care Time/CCT Total # of Minutes Spent Total Time Spent with Patient: Total time spent is greater than 50% in coordination of care (as documented) at patient's floor/unit and/or counseling patient: Coding Level of Care Code 24979 Initial Inpt Care Lvl 3 Diagnoses Hypertensive emergency I16.1 Chest pain R07.9 Elevated troponin R77.8 Occipital headache R51.9 Hypertension I10 Hypertension type: unspecified Family history of coronary artery disease Z82.49 Hyperlipidemia E78.5 Pre-diabetes R73.03 Asthma, mild persistent J45.30 MARTY (obstructive sleep apnea) G47.33 Allergic rhinitis J30.9 Chronic dyspnea R06.09 DVT prophylaxis Z29.9 (1) Hypertension Hypertension type: unspecified Qualified Code(s): I10 - Essential (primary) hypertension
[2020-10-28] MEDS ORDERED: STAT IV Infusion **Titration per Protocol STA (08:40)
[2020-10-28] MEDS ORDERED: NITROGLYCERIN/D5W 100MCG/ML 250 ML IV SCH (08:45)
[2020-10-28] MEDS ORDERED: amLODIPine BESYLATE 5 MG TAB ONE (09:04)
[2020-10-28] MEDS ORDERED: amLODIPine BESYLATE 5 MG TAB PO STA (09:10)
[2020-10-28] MEDS ORDERED: OPTIRAY 350 500ml IV ONE (09:59)
[2020-10-28] MEDS ORDERED: MoRPHine SULFATE 2 MG/ML CARP IV PRN (10:18)
[2020-10-28] MEDS ORDERED: SODIUM CHLORIDE 0.65% NA SOLN 45 ML (OCEAN) PRN (10:18)
[2020-10-28] MEDS ORDERED: ALBUTEROL HFA 8 GM INHALER INH PRN (10:18)
[2020-10-28] MEDS ORDERED: NITROGLYCERIN SL 0.4 MG/TAB TAB SL PRN (10:18)
[2020-10-28] MEDS ORDERED: ONDANSETRON INJ 2 MG/ML 2 ML VIAL IV PRN (10:18)
[2020-10-28] MEDS ORDERED: ALBUTEROL 0.083% NEBU SOLN 3 ML VIAL INH PRN (10:18)
--- NOTE | 2020-10-28 10:18 | CT Scan Report ---
CT ANGIOGRAPHY OF THE NECK WITH CONTRAST CLINICAL HISTORY: occipital headache, HTN emergency COMPARISON STUDY: CTA of the neck March 05, 2019. Technique: CT angiography of the carotid and vertebral arteries was obtained using Optiray and 3D rec onstruction on an independent workstation. NASCET criteria was utilized. Automated exposure control was utilized for the study. A dose lowering technique was utilized adhering to the principles of ALA RA. Findings: Lung apices are clear. There is no cervical lymphadenopathy. No cervical spine fracture is noted. The bilateral common carotid, cervical internal carotid and vertebral arteries are patent. The re is no dissection within the major vessels of the neck. No aneurysm within the neck is noted. There is no significant stenosis. IMPRESSION: Unremarkable CTA of the neck. No dissection or stenosis. ACT 112: Negative or not required by law. Electronically signed by: Hang Tomlin M.D. 10/28/2020 10:17 AM
--- NOTE | 2020-10-28 10:21 | CT Scan Report ---
CTA ANGIOGRAPHY OF THE HEAD CLINICAL HISTORY: occipital headache, HTN emergency COMPARISON STUDY: Head CT October 24, 2020. TECHNIQUE: Helical axial images of the head were obtained following uneventful intravenous administr ation of 117 cc of Optiray. Sagittal and coronal reconstructions were viewed as well as maximal inten sity projections on an independent 3-D workstation. Automated exposure control was utilized for the study. A dose lowering technique was utilized adhering to the principles of ALARA. CT DOSE: 490.95 mGy.cm FINDINGS: Sensitivity for detection of acute intracranial hemorrhage is diminished on this contrast e nhanced exam but none is identified. Ventricular system is normal. Basal cisterns are patent. There a re no extra-axial collections. The bilateral M1, M2, A1 and A2 segments are patent. There is no intra cranial aneurysm. There is no dissection. No stenosis is identified. No central vessel occlusion is n oted. The posterior circulation is also intact. There is no significant calvarial abnormality. IMPRESSION: Unremarkable CTA of the head. No intracranial aneurysm. No central vessel occlusion. ACT 112: Negative or not required by law. Electronically signed by: Hang Tomlin M.D. 10/28/2020 10:20 AM
[2020-10-28] MEDS: CHOLECALCIFEROL 1,000 UNITS 25 MCG TAB PO SCH (10:56)
[2020-10-28] MEDS: EZETIMIBE 10 MG TABLET PO SCH (10:57)
[2020-10-28] MEDS: ADVANCED PROBIOTIC 1250 MG CAPSULE PO SCH (10:57)
[2020-10-28] MEDS: DOCUSATE SODIUM 100 MG CAP PO SCH (10:57)
[2020-10-28] MEDS: DYMISTA~ORDER AWAITING ACTION SCH ×3 (11:01→23:44)
[2020-10-28] MEDS: NITROGLYCERIN 2% OINTMENT 30GM TUBE EXT SCH ×2 (12:26→18:18)
[2020-10-28] MEDS: ACETAMINOPHEN 325 MG TAB PO PRN (15:28)
--- NOTE | 2020-10-28 16:41 | XCELERA ---
[id number]
--- NOTE | 2020-10-28 18:16 | Cardiology Consultation ---
Date of Consultation October 28, 2020 Assessment & Plan (1) Elevated troponin: Only very mild elevation of cardiac troponins. He has had troponins drawn previously this represents only a small incremental difference from her usual troponin levels. I do not think this is indicative of an acute coronary syndrome. 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 I suspect if there has been any actual cardiac injury is related to the higher blood pressures that she has been having. (2) Chest pain: I don't think her symptoms were food products sales representative of an acute coronary syndrome or cardiac ischemia. Possibly related to anxiety or related to her sense of palpitations. She has not report other symptoms consistent with coronary insufficiency or angina. She is an active individual without exertional symptoms. (3) Hypertensive emergency: She is not known to have a diagnosis of high blood pressure. According to the patient that been monitoring her blood pressure through the DE and there has been some concern that is rising. I think it is quite possible that worsening of her blood pressure could have been affected by steroid administration. Blood pressure currently normal with topical nitroglycerin. Some doses of amlodipine. I think this can be removed in the morning. She will likely require some outpatient medication for hypertension. Amlodipine would seem like a reasonable option. History of Present Illness Reason for Consultation: Hypertension, chest pain Requesting Physician: Lilo Attending Physician: Eulogio Nagy History of Present Illness The patient is a 65-year-old woman without a known history of cardiac disease who has been feeling poorly for most of the week. It seems that she developed a headache earlier in the week which was fairly severe and chronic in nature. Initially described as a ice pick in the back of the head. She presented to [facility] emergency room on Thursday of last week for the symptoms and did get relief with narcotics and steroids. She was sent home with some steroids. At some point she contacted the DE in [place] regarding elevated blood pressures. She was asked to check her blood pressure when she was feeling poorly. She reported some mild dyspnea over the past few days. Somewhat out of proportion to her level of activity. She thought this could be related to sinus congestion. Approximately 3:00 a.m. this morning the patient felt that her heart was racing. She has been checking her blood pressure nearly every hour over the course of the evening and was alarmed at the higher blood pressure readings that she was obtaining. Her pulse reading approached 80 beats per minute which she thought was abnormal. She also developed a sense of chest heaviness. This apparently compromised her breathing as well. Based on the elevated blood pressure and the persistent nature of her symptoms she came to the emergency room again. She was noted to have markedly elevated blood pressure and nitroglycerin was administered with improvement in her symptoms. Generally speaking she is an active individual who walks her dogs regularly. She is generally not limited by symptoms of dyspnea although does report having asthma. She does not have symptoms of chest pain normally. Currently feeling much better. No chest pain. She has not noticed her heart racing despite having a heart rate of 75. Allergies Allergy/AdvReac Type Severity Reaction Status Date / Time Penicillins Allergy Severe edema of Verified 11/02/20 09:10 face, tongue, and lips. Rash colestipol Allergy Intermediate Leg cramps Verified 11/02/20 09:10 fexofenadine Allergy Intermediate Tachycardia Verified 11/02/20 09:10 niacin Allergy Intermediate Leg cramps Verified 11/02/20 09:10 terfenadine Allergy Intermediate JITTERY Verified 11/02/20 09:10 astemizole Allergy Mild JITTERY Verified 11/02/20 09:10 levofloxacin Allergy Mild Jittery Verified 11/02/20 09:10 loratadine Allergy Mild JITTERY Verified 11/02/20 09:10 Sulfa (Sulfonamide Allergy Mild Rash Verified 11/02/20 09:10 Antibiotics) sulfamethoxazole Allergy Mild Rash Verified 11/02/20 09:10 cefuroxime Allergy Unknown CAN'T Verified 11/02/20 09:10 REMEMBER Bybeuln-Cld-Nwz Reductase AdvReac Unknown leg cramps Verified 11/02/20 09:10 Inhibitor Home Medications Medication Instructions Recorded Confirmed Type albuterol sulfate 2.5 mg INHALATION Q4H PRN 05/30/18 11/02/20 History albuterol sulfate [Ventolin HFA] 2 puff INHALATION Q4H PRN 05/30/18 11/02/20 History cholecalciferol (vitamin D3) 2,000 unit PO QAM 05/30/18 11/02/20 History [Vitamin D3] docusate sodium 200 mg PO QAM 05/30/18 11/02/20 History sodium chloride [Vilas Nasal] 1 spray INTRANASAL DIRECTED PRN 05/30/18 11/02/20 History valacyclovir 2,000 mg PO DAILY PRN 05/30/18 11/02/20 History psyllium husk [Metamucil] 0.52 g PO Q OTHER DAY 08/03/18 11/02/20 History montelukast [Singulair] 10 mg PO HS 08/11/18 11/02/20 History azelastine-fluticasone 1 spray INTRANASAL HS 10/22/18 11/02/20 History ezetimibe [Zetia] 10 mg PO QAM 10/22/18 11/02/20 History Align 4 mg PO QAM 11/24/18 11/02/20 History diphenhydramine HCl [Benadryl 25 mg PO HS 10/24/20 11/02/20 History Allergy] Theraworx Relief 1 applic TOPICAL DAILY PRN 10/28/20 11/02/20 History amlodipine [Norvasc] 5 mg PO QAM #30 tab 10/29/20 11/02/20 Rx omeprazole 40 mg PO DAILY 30 Days #30 cap 10/29/20 11/02/20 Rx acetaminophen [Tylenol Extra 1,000 mg PO Q6H PRN 11/02/20 11/02/20 History Strength] aspirin [Aspir-81] 162 mg PO DAILY PRN 11/02/20 11/02/20 History gabapentin 100 mg PO TID 20 Days #60 cap 11/02/20 Rx Patient History Medical History Abdominal adhesions Asthma, mild persistent last used PRN inh 06/2018 Bradycardia asymptomatic. Chest pain Environmental allergies Family history of coronary artery disease Fibromyalgia Finger laceration GERD (gastroesophageal reflux disease) Hiatal hernia History of kidney stones Hx of breast cancer RIGHT, s/p lumpectomy x 2 + XRT. 2017 Hypertension IBS (irritable bowel syndrome) Nasal congestion MARTY (obstructive sleep apnea) no device, was never prescribed a CPAP, was told not severe enough. Temporomandibular joint disorder Jaw has never locked. 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 H/O rectal sphincterotomy H/O: knee surgery "L knee; remove med/lateral cartilage performed by 2010 " History of anesthesia reaction urinary retention requiring catheterization and spinal headaches after epidurals History of ankle surgery RIGHT History of appendectomy History of breast biopsy History of section X2 History of cholecystectomy History of colonoscopy History of cystoscopy 2019 - cyst removed; [facility] History of esophagogastroduodenoscopy (EGD) History of hysterectomy "1 ovary remains; 1994" History of hysterectomy with unilateral oophorectomy History of lumpectomy of right breast History of tonsillectomy and adenoidectomy History of tonsillectomy and adenoidectomy History of total left knee replacement (TKR) History of tubal ligation Hx of right knee surgery S/P scar revision (12/08/18) Abdominal Scar Revision Family History Mother , age 77 from sepsis Valvular heart disease s/p valve replacement AAA (abdominal aortic aneurysm) Diabetes Father , age 82 COPD (chronic obstructive pulmonary disease) Coronary heart disease multiple stents Hyperlipidemia Lung cancer Aunt , maternal aunt Coronary heart disease Uncle , maternal uncle Hx of CABG Sister Breast cancer Lung cancer Other Heart disease Social History Smoking Status: Never smoker Second Hand Exposure: No; Hx Alcohol Use: No Hx Substance Use: No Preferred Language: Macedonian Communication Ability: Effective Visual Impairment: No Limitations Supervisor Net Making Required: No Beliefs That Will Affect Care: None marital status: marital status details: 3x's Current Living Situation: Spouse Current Living Situation Comment: [employer] current occupational status: retired How many Children do You have: 5 How many Children do You have Comment: 2 biological sons; other children are step-kids other: 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 Very beginnings of some posterior neck and occipital pain Physical Exam Physical Exam: She is alert and oriented x3. Mood affect appear normal. She answered all questions appropriately. HEENT: Sclerae are anicteric. Pupils are equal and reactive to light and accommodation. Extraocular movements were intact. Neuro: Cranial nerves intact Neck: Examination of the submandibular region did not reveal any significant lymphadenopathy. Carotids are palpable bilaterally and free of bruits on auscultation. There was no evidence of jugular venous distention. The thyroid was not enlarged. Lungs: Lungs are clear to auscultation bilaterally. There are no rales wheezes or rhonchi. She has normal respiratory effort without use of accessory muscles. There is normal pulmonary excursion. Cardiac: The rhythm was regular. S1 and S2 were normal. There are no murmurs on examination. The PMI was not markedly displaced on palpation. Extremities: Patient has bilateral radial pulses that are equal in intensity. There is no evidence cyanosis or clubbing. There was no evidence of significant peripheral edema bilaterally. Skin: There are no rashes noted on examination today. Results & Data ([facility]) Vital Signs (Past 12 Hours) Vital Signs Temp Pulse Pulse Resp BP BP Pulse Ox 10/28/20 17:02 68 19 125/73 10/28/20 16:02 61 20 127/77 10/28/20 16:00 68 10/28/20 15:02 64 23 131/77 10/28/20 13:43 58 L 145/85 H 10/28/20 12:02 60 152/88 H 10/28/20 11:02 57 L 157/84 H 10/28/20 10:49 52 L 10/28/20 10:22 36.9 C 59 L 15 194/85 H 90 10/28/20 10:18 36.9 C 10/28/20 10:14 36.9 C 59 L 15 194/85 H 90 10/28/20 09:31 61 22 174/127 H 90 10/28/20 09:16 65 26 H 197/142 H 97 10/28/20 09:00 60 23 188/106 H 96 10/28/20 08:51 66 20 161/77 H 94 10/28/20 08:48 55 L 16 167/93 H 95 10/28/20 08:45 59 L 23 194/124 H 98 10/28/20 08:30 62 23 202/124 H 98 10/28/20 08:15 58 L 20 184/114 H 97 10/28/20 08:00 55 L 21 173/111 H 95 10/28/20 07:45 63 24 195/120 H 94 10/28/20 07:30 64 22 172/97 H 96 10/28/20 07:19 68 22 194/118 H 95 10/28/20 07:00 66 16 180/118 H 98 10/28/20 06:30 68 26 H 96 10/28/20 06:19 188/108 H 10/28/20 06:15 65 16 97 10/28/20 06:12 68 17 97 10/28/20 06:10 70 21 211/129 H 98 Laboratory Results Abnormal Lab Results 10/28/20 10/28/20 10/28/20 06:14 06:14 06:14 WBC 7.08 RBC 4.82 Hgb 15.7 Hct 44.5 MCV 92.3 MCH 32.6 MCHC 35.3 RDW Std Deviation 41.2 RDW Coeff of Shanta 12.2 Plt Count 306 MPV 9.5 Immature Gran % (Auto) 0.3 Neut % (Auto) 67.1 Lymph % (Auto) 28.7 [place] % (Auto) 3.2 Eos % (Auto) 0.3 Baso % (Auto) 0.4 Neut # (Auto) 4.75 Lymph # (Auto) 2.03 [place] # (Auto) 0.23 Eos # (Auto) 0.02 Baso # (Auto) 0.03 Immature Gran # (Auto) 0.02 ESR PT INR APTT PTT Ratio D-Dimer Sodium 142 Potassium 4.0 Chloride 109 H Carbon Dioxide 27 Anion Gap 6.0 BUN 14 Creatinine 0.73 Est Cr Clr Drug Dosing 79.2 Est GFR ( Amer) 100.9 Est GFR (Non-Af Amer) 87.0 BUN/Creatinine Ratio 19.9 Glucose 119 H POC Glucose Calcium 9.2 Magnesium Total Bilirubin 0.6 AST 17 ALT 35 Alkaline Phosphatase 82 Troponin I 0.049 H* C-Reactive Protein Total Protein 7.9 Albumin 4.1 Globulin 3.8 Albumin/Globulin Ratio 1.1 Urine Color Yellow Urine Appearance Clear Urine pH 7.0 Ur Specific [place] 1.005 Urine Protein Negative Urine Glucose (UA) Negative Urine Ketones Negative Urine Blood Negative Urine Nitrite Negative Urine Bilirubin Negative Urine Urobilinogen Negative Ur Leukocyte Esterase Negative Nasal Screen MRSA (PCR) COVID-19 Eval Order SARS-CoV-2 (PCR) 10/28/20 10/28/20 10/28/20 06:14 06:14 06:14 WBC RBC Hgb Hct MCV MCH MCHC RDW Std Deviation RDW Coeff of Sahn[place] Plt Count MPV Immature Gran % (Auto) Neut % (Auto) Lymph % (Auto) [place] % (Auto) Eos % (Auto) Baso % (Auto) Neut # (Auto) Lymph # (Auto) [place] # (Auto) Eos # (Auto) Baso # (Auto) Immature Gran # (Auto) ESR 8 PT 9.3 INR 0.9 APTT 21.1 PTT Ratio 0.8 D-Dimer 350 Sodium Potassium Chloride Carbon Dioxide Anion Gap BUN Creatinine Est Cr Clr Drug Dosing Est GFR ( Amer) Est GFR (Non-Af Amer) BUN/Creatinine Ratio Glucose POC Glucose Calcium Magnesium 2.5 H Total Bilirubin AST ALT Alkaline Phosphatase Troponin I C-Reactive Protein Total Protein Albumin Globulin Albumin/Globulin Ratio Urine Color Urine Appearance Urine pH Ur Specific [place] Urine Protein Urine Glucose (UA) Urine Ketones Urine Blood Urine Nitrite Urine Bilirubin Urine Urobilinogen Ur Leukocyte Esterase Nasal Screen MRSA (PCR) COVID-19 Eval Order SARS-CoV-2 (PCR) 10/28/20 10/28/20 10/28/20 06:14 07:12 07:12 WBC RBC Hgb Hct MCV MCH MCHC RDW Std Deviation RDW Coeff of Sh[place] Plt Count MPV Immature Gran % (Auto) Neut % (Auto) Lymph % (Auto) [place] % (Auto) Eos % (Auto) Baso % (Auto) Neut # (Auto) Lymph # (Auto) [place] # (Auto) Eos # (Auto) Baso # (Auto) Immature Gran # (Auto) ESR PT INR APTT PTT Ratio D-Dimer Sodium Potassium Chloride Carbon Dioxide Anion Gap BUN Creatinine Est Cr Clr Drug Dosing Est GFR ( Amer) Est GFR (Non-Af Amer) BUN/Creatinine Ratio Glucose POC Glucose Calcium Magnesium Total Bilirubin AST ALT Alkaline Phosphatase Troponin I C-Reactive Protein < 0.29 Total Protein Albumin Globulin Albumin/Globulin Ratio Urine Color Urine Appearance Urine pH Ur Specific [place] Urine Protein Urine Glucose (UA) Urine Ketones Urine Blood Urine Nitrite Urine Bilirubin Urine Urobilinogen Ur Leukocyte Esterase Nasal Screen MRSA (PCR) COVID-19 Eval Order Covid19 at [facility] SARS-CoV-2 (PCR) NEGATIVE 10/28/20 10/28/20 10/28/20 11:05 12:03 16:25 WBC RBC Hgb Hct MCV MCH MCHC RDW Std Deviation RDW Coeff of Shanta Plt Count MPV Immature Gran % (Auto) Neut % (Auto) Lymph % (Auto) [place] % (Auto) Eos % (Auto) Baso % (Auto) Neut # (Auto) Lymph # (Auto) [place] # (Auto) Eos # (Auto) Baso # (Auto) Immature Gran # (Auto) ESR PT INR APTT PTT Ratio D-Dimer Sodium Potassium Chloride Carbon Dioxide Anion Gap BUN Creatinine Est Cr Clr Drug Dosing Est GFR ( Amer) Est GFR (Non-Af Amer) BUN/Creatinine Ratio Glucose POC Glucose 103 H 99 Calcium Magnesium Total Bilirubin AST ALT Alkaline Phosphatase Troponin I 0.053 H* C-Reactive Protein Total Protein Albumin Globulin Albumin/Globulin Ratio Urine Color Urine Appearance Urine pH Ur Specific [place] Urine Protein Urine Glucose (UA) Urine Ketones Urine Blood Urine Nitrite Urine Bilirubin Urine Urobilinogen Ur Leukocyte Esterase Nasal Screen MRSA (PCR) COVID-19 Eval Order SARS-CoV-2 (PCR) 10/28/20 Unknown WBC RBC Hgb Hct MCV MCH MCHC RDW Std Deviation RDW Coeff of Shanta Plt Count MPV Immature Gran % (Auto) Neut % (Auto) Lymph % (Auto) [place] % (Auto) Eos % (Auto) Baso % (Auto) Neut # (Auto) Lymph # (Auto) [place] # (Auto) Eos # (Auto) Baso # (Auto) Immature Gran # (Auto) ESR PT INR APTT PTT Ratio D-Dimer Sodium Potassium Chloride Carbon Dioxide Anion Gap BUN Creatinine Est Cr Clr Drug Dosing Est GFR ( Amer) Est GFR (Non-Af Amer) BUN/Creatinine Ratio Glucose POC Glucose Calcium Magnesium Total Bilirubin AST ALT Alkaline Phosphatase Troponin I C-Reactive Protein Total Protein Albumin Globulin Albumin/Globulin Ratio Urine Color Urine Appearance Urine pH Ur Specific [place] Urine Protein Urine Glucose (UA) Urine Ketones Urine Blood Urine Nitrite Urine Bilirubin Urine Urobilinogen Ur Leukocyte Esterase Nasal Screen MRSA (PCR) Negative COVID-19 Eval Order SARS-CoV-2 (PCR) Diagnostic Findings And head and neck CTA performed today did not reveal any evidence of dissection or intracranial abnormality. Chest x-ray did not reveal any acute cardiopulmonary findings Echocardiogram performed today revealed preserved LV systolic function without regional wall motion abnormalities. No significant valvular heart disease Cardiac perfusion study performed in March 2019 did not demonstrate any evidence of ischemia. PG Care Time/CCT Total # of Minutes Spent Total Time Spent with Patient: Total time spent is greater than 50% in coordination of care (as documented) at patient's floor/unit and/or counseling patient: Coding Level of Care Code 17845 Inpt Consult Level 4 Diagnoses Elevated troponin R77.8 Chest pain R07.9 Hypertensive emergency I16.1
--- NOTE | 2020-10-28 18:51 | Electrocardiogram Report ---
Test Reason : Blood Pressure : / mmHG Vent. Rate : 065 BPM Atrial Rate : 065 BPM P-R Int : 124 ms QRS Dur : 072 ms QT Int : 396 ms P-R-T Axes : 038 010 046 degrees QTc Int : 411 ms Normal sinus rhythm When compared with ECG of 01-MAY-2019 16:40, No significant change was found Confirmed by Emmanuel Pat ([id number]) on 10/28/2020 6:50:50 PM Referred By: Confirmed By:Noel Pat
--- NOTE | 2020-10-28 18:51 | Electrocardiogram Report ---
Test Reason : Blood Pressure : / mmHG Vent. Rate : 064 BPM Atrial Rate : 064 BPM P-R Int : 144 ms QRS Dur : 070 ms QT Int : 412 ms P-R-T Axes : 036 -02 010 degrees QTc Int : 425 ms Normal sinus rhythm Minimal voltage criteria for LVH, may be normal variant Nonspecific ST abnormality Abnormal ECG When compared with ECG of 28-OCT-2020 06:07, (unconfirmed) No significant change was found Confirmed by Emmanuel Pat ([id number] on 10/28/2020 6:51:27 PM Referred By: REFERRED SELF Confirmed By:Noel Pat
[2020-10-28] MEDS ORDERED: MONTELUKAST SODIUM 10 MG TABLET PO SCH (21:00)
[2020-10-28] MEDS ORDERED: diphenhydrAMINE Capsule 25 MG CAP PO SCH (21:00)
[2020-10-28] MEDS ORDERED: METOPROLOL TARTRATE 1 MG/ML VIAL IV PRN (21:01)
[2020-10-28] MEDS ORDERED: NITROGLYCERIN 2% OINTMENT 30GM TUBE EXT PRN (21:24)
[2020-10-29 04:55] LABS: BUN Creatinine Ratio 26.5 (10-20); Calcium 8.2 mg/dl (8.5-10.1); Creatinine Clr Calc Pharmacy 79.5 ml/min; Est GFR (African American) 100.9 ml/min; Potassium 3.6 mmol/L (3.5-5.1)
[2020-10-29] MEDS: ACETAMINOPHEN 325 MG TAB PO PRN (05:48)
[2020-10-29 07:10] LABS: Estimated Average Glucose 117 mg/dl; Hemoglobin A1C 5.7 % (4.5-5.6)
[2020-10-29] MEDS: ADVANCED PROBIOTIC 1250 MG CAPSULE PO SCH (08:09)
[2020-10-29] MEDS: DOCUSATE SODIUM 100 MG CAP PO SCH (08:10)
[2020-10-29] MEDS: EZETIMIBE 10 MG TABLET PO SCH (08:10)
[2020-10-29] MEDS: CHOLECALCIFEROL 1,000 UNITS 25 MCG TAB PO SCH (08:10)
[2020-10-29] MEDS ORDERED: ASPIRIN 81 MG ECTAB PO SCH (09:00)
[2020-10-29] MEDS ORDERED: amLODIPine BESYLATE 5 MG TAB PO SCH (09:00)
[2020-10-29] MEDS: DYMISTA~ORDER AWAITING ACTION SCH (09:01)
[2020-10-29] MEDS ORDERED: PERFLUTREN LIPID MICROSPHERE (DEFINITY) IV ONE (15:40)
--- NOTE | 2020-10-29 17:27 | Discharge Summary ---
Date of Service date of admission - October 28, 2020 date of discharge - October 29, 2020 Admission HPI Per Admitting Provider 65yo female presents with posterior occipital headache starting Thursday of this week. [place] "like an ice pick." Was using advil, excedrin migraine, and tylenol without relief of symptoms. She is not one to get headaches or migraines. She also had jaw pain on the right side with the headache. Never had frontal headache or temporal headache. No nausea or emesis. No pain with chewing. Came to ER at [facility] on Thursday. CT head negative. Blood pressure was elevated. Was given IV toradol and IV decadron - headache resolved. Was d/c home with medrol dose pack. Pain returned on - pain in occipital location was "not as bad." On Thursday visited her dentist - was told it was NOT headache from TMJ or her teeth. On Thursday she felt poorly "all day." She continued with occipital headache but now it was radiating to both temples. Yesterday she took several blood pressures - systolics all 160s to 180s. She felt like she was "breathing heavy" at rest intermittently throughout the day yesterday. At 0330 this am she was awoken by her "heart rating". She checked her pulse and it was 80. About the same time she had chest pressure (not a pain). It was central in location. Her jaw was hurting b/l. Discomforts did NOT radiate into her arms but did radiate to the upper back. Had mild nausea. No diaphoresis. Her ears were "very red" as well during this spell at 0330. 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 This was attributed to her asthma. She has tried her albuterol inhaler for the dyspnea but it hasn't helped. Had stress test in 2019 through the [facility] system - negative per her recollection. Drove herself to the hospital this am by private car. Got aspirin in the ER along with nitro SL x 2 followed by nitropaste - all symptoms better. Chest discomfort/pressure is gone. Breathing is more comfortable. BP improved from >200 to about 180 systolically. Principal Diagnosis 1. hypertensive emergency 2. chest pain, ACS ruled out, negative stress test 3. occipital headache - improved Discharge Exam Constitutional well developed and well nourished; no acute distress and no altered mental status Eyes PERRL ENMT external ear and nose normal, oropharynx normal Neck trachea midline, no thyromegaly tender posterior neck/occipital portion of head to palpation Respiratory normal respiratory effort, lungs clear to auscultation Cardiovascular Rate/Rhythm: regular rate and regular rhythm Heart Sounds: normal S1 and normal S2; no murmur Vessels: posterior tibial pulses present and dorsalis pedis pulses present; no JVD Extremities: no edema Chest (Breasts) Additional Comments: no tenderness to palpation Gastrointestinal (Abdomen) normal bowel sounds, soft, nontender, no hepatosplenomegaly Psychiatric A+Ox3, euthymic affect Discharge Data Allergies Allergy/AdvReac Type Severity Reaction Status Date / Time Penicillins Allergy Severe edema of Verified 11/02/20 09:10 face, tongue, and lips. Rash colestipol Allergy Intermediate Leg cramps Verified 11/02/20 09:10 fexofenadine Allergy Intermediate Tachycardia Verified 11/02/20 09:10 niacin Allergy Intermediate Leg cramps Verified 11/02/20 09:10 terfenadine Allergy Intermediate JITTERY Verified 11/02/20 09:10 astemizole Allergy Mild JITTERY Verified 11/02/20 09:10 levofloxacin Allergy Mild Jittery Verified 11/02/20 09:10 loratadine Allergy Mild JITTERY Verified 11/02/20 09:10 Sulfa (Sulfonamide Allergy Mild Rash Verified 11/02/20 09:10 Antibiotics) sulfamethoxazole Allergy Mild Rash Verified 11/02/20 09:10 cefuroxime Allergy Unknown CAN'T Verified 11/02/20 09:10 REMEMBER Ksmeend-Gna-Jdv Reductase AdvReac Unknown leg cramps Verified 11/02/20 09:10 Inhibitor Consultations [facility] Cardiology Ordered Studies Chest X-Ray 10/28/20 07:07 XR chest 1V portable CLINICAL HISTORY: chest pain COMPARISON STUDY: Chest CT March 05, 2019. FINDINGS: Lung volumes are normal. Lungs are clear. There is no pneumothorax or pleural effusion. Cardiac size is stable. Mediastinal contours are normal. There is no evidence for pulmonary edema. IMPRESSION: No acute cardiopulmonary findings. ACT 112: Negative or not required by law. Electronically signed by: Hang Tomlin M.D. 10/28/2020 7:33 AM Head CTA 10/28/20 09:07 CTA ANGIOGRAPHY OF THE HEAD CLINICAL HISTORY: occipital headache, HTN emergency COMPARISON STUDY: Head CT October 24, 2020. TECHNIQUE: Helical axial images of the head were obtained following uneventful intravenous administration of 117 cc of Optiray. Sagittal and coronal reconstructions were viewed as well as maximal intensity projections on an independent 3-D workstation. Automated exposure control was utilized for the study. A dose lowering technique was utilized adhering to the principles of ALARA. CT DOSE: 490.95 mGy.cm FINDINGS: Sensitivity for detection of acute intracranial hemorrhage is diminished on this contrast enhanced exam but none is identified. Ventricular system is normal. Basal cisterns are patent. There are no extra-axial collections. The bilateral M1, M2, A1 and A2 segments are patent. There is no intracranial aneurysm. There is no dissection. No stenosis is identified. No central vessel occlusion is noted. The posterior circulation is also intact. There is no significant calvarial abnormality. IMPRESSION: Unremarkable CTA of the head. No intracranial aneurysm. No central vessel occlusion. ACT 112: Negative or not required by law. Electronically signed by: Hang Tomlin M.D. 10/28/2020 10:20 AM Neck CTA 10/28/20 09:07 CT ANGIOGRAPHY OF THE NECK WITH CONTRAST CLINICAL HISTORY: occipital headache, HTN emergency COMPARISON STUDY: CTA of the neck March 05, 2019. Technique: CT angiography of the carotid and vertebral arteries was obtained using Optiray and 3D reconstruction on an independent workstation. NASCET criteria was utilized. Automated exposure control was utilized for the study. A dose lowering technique was utilized adhering to the principles of ALARA. Findings: Lung apices are clear. There is no cervical lymphadenopathy. No cervical spine fracture is noted. The bilateral common carotid, cervical internal carotid and vertebral arteries are patent. There is no dissection within the major vessels of the neck. No aneurysm within the neck is noted. There is no significant stenosis. IMPRESSION: Unremarkable CTA of the neck. No dissection or stenosis. ACT 112: Negative or not required by law. Electronically signed by: Hang Tomlin M.D. 10/28/2020 10:17 AM Echocardiogram - * EF 55-60% * normal valve function * grade 1 diastolic dysfunction Stress echocardiogram - NO inducible ischemia at 94% of maximum predicted heart rate; hypertensive response to exercise Hospital Course (1) Hypertensive emergency: SEVERE HTN at time of presentation with end-organ symptoms including headache, chest discomfort/dyspnea, etc. Peak systolic BP was about 210. All symptoms improved in the ER with lowering of her blood pressure. Received amlodipine 5mg x 1 in ER along with topical nitrates. She had a rpsyot-gptd-ufgnwyrm, robust response to the above. By the time she left the ER and was admitted her systolic BP was 160s/170s. Further, after admission to the telemetry unit, her BPs improved even more. For the remainder of her stay the 5mg amlodipine dose was adequate enough to keep her BPs controlled. (2) Chest pain: Likely 2nd to her HTN emergency. Chest pain improved with nitrates as well as reduction in her severely elevated BP. Although she had a minimally elevated troponin she had no evidence of ACS otherwise. 2D echo was normal. Stress echo was negative for ischemia. (3) Elevated troponin: Likely myocardial demand ischemia in setting of her HTN emergency. However, given the chest pain and improved chest symptoms with nitrates, she underwent stress echocardiogram to exclude active ischemia. Stress echo was negative for such. Peak troponin was 0.053. Continue daily aspirin. Treat the HTN. (4) Occipital headache: SEVERE. CT head on 10/24 during prior ER visit was negative. ESR and crp were normal making temporal arteritis highly unlikely. CTA head & neck were negative for aneurysm, dissection, etc. Headache may be the following -- severe tension headache vs TMJ vs due to severely elevated BP vs other. She has no prior h/o migraine. Headache was essentially gone by time of discharge. Steroids were stopped. (5) Hypertension: A review of the medical record shows numerous high blood pressure readings dating back to 2018. There is enough data to confirm a diagnosis of essential HTN. started amlodipine 5mg daily. see above in "HTN emergency." (6) Family history of coronary artery disease: (7) Hyperlipidemia: LDL 138. HDL 65. Trigs 220. Continue zetia. She is statin intolerant. (8) Pre-diabetes: Hba1c 5.7%. Beginning cusp of early pre-diabetes. Dietary control. (9) Asthma, mild persistent: continue singulair 10mg daily. albuterol prn. she is not on ICS therapy. patient reports chronic TRUONG which she has been attributing to her asthma. however, when she takes albuterol for the dyspnea, she notices no improvement. consider referral to pulmonary for PFTs. d-dimer noted to be negative during the stay. (10) MARTY (obstructive sleep apnea): not on Rx for such (11) Allergic rhinitis: continue home medications. (12) Chronic dyspnea: see above in "asthma". echo and stress echo both negative. recommended f/u with PCP and consider pulmonary referral. if pulmonary work-up is negative - cardiac cath? other ? Total Time Total Time Spent Total Time Spent (In Minutes): 40 Total Time Includes: Examination of the Patient, Discharge Planning, Medication Reconciliation and Communication With Other Providers Discharge Plan Discharge Items Patient Disposition: Home - Self-Care Reason For Visit: HYPERTENSIVE EMERGENCY,CHEST PAIN,HEADACHE Discharge Diagnosis: 1. hypertensive emergency - resolved 2. chest pain - likely due to severely uncontrolled high blood pressure - no evidence of heart attack; stress test negative 3. headache - no evidence of a headache condition "temporal arteritis"; either severe tension headache or the headache was from the blood pressure being high; TMJ was possible but less likely Activity: As commented below Activity Comment: gradually increase your activities over the next 2-3 days Non-emergency contact: Primary Care Provider Call non-emergency contact if: you have any medication questions, your symptoms worsen, your pain is not controlled and your pain is worsening Follow-up/Referrals: Wilma Martinez PA-C [Primary Care Provider] - (please see Martinez within 5-7 days ) Diet: Carb Consistent or DM2 and Heart Healthy Addtl Attending Provider Instructions: Mrs Patrick, You were treated for the problems listed above in "discharge diagnoses." Your presenting symptoms - headache, chest discomfort, shortness of breath, etc - all improved once your blood pressure started to improve in the emergency department. Once on blood pressure medication your blood pressure was relatively easy to control. You did not have evidence of heart attack. Your heart monitoring (telemetry) was normal. Your stress test was NEGATIVE (normal). Your heart ultrasound (echocardiogram) was normal. COVID testing was negative and your chest x-ray was normal. We believe that your chest discomfort and other symptoms were likely from the severely elevated blood pressure. It is possible that your hiatal hernia / reflux disease could also be contributing to certain chest complaints as well (namely the chest discomfort, burping, etc). Things that can make your blood pressure rise include but are not limited to the following -- 1. steroids being taken for any reason 2. decongestants (your zyrtec-D has a strong decongestant in it) 3. untreated sleep apnea/snoring 4. anxiety At this time, since your headache is resolved, please STOP your medrol dose pack steroid given by the ER. Also please STOP your zyrtec-D -- change to plain zyrtec. Consider talking with your family doctor about a repeat sleep study. Additional recommendations - 1. for high blood pressure - take amlodipine 5mg once daily starting 10/30/20 2. for possible reflux disease - take omeprazole 40mg once daily for 30 days; start today 3. check your blood pressure daily at home and record them in a notebook for your family doctor to see 4. for headache - * tylenol first * if not effective then motrin up to 800mg each dose, every 8 hours as needed * if motrin is not effective then try excedrin migraine * heat (heating pad, etc) * stretching exercises of neck * continue your mouth guard with sleeping 5. for your chronic shortness of breath please ask your family doctor about a referral to a speedboat driver for PFTs (pulmonary function tests) Follow-up - see your family doctor within 5-7 days Return to [facility] if - * you have recurrent chest pain/discomfort regardless of what your blood pressure is * you have worsening shortness of breath * you have severely elevated blood pressure (180-190 or higher) that is not coming down with your blood pressure medicationi * any other concerns It was my pleasure to care for you! -Dr Nagy Pending Studies at Discharge: No Stand-Alone Forms: My [facility], Smoking Cessation Medications and DC Order Prescriptions: New amlodipine [Norvasc] 5 mg Tablet 5 mg PO QAM Qty: 30 RF: 5 omeprazole 40 mg capsule,delayed release(DR/EC) 40 mg PO DAILY 30 Days Qty: 30 RF: 0 Continued psyllium husk [Metamucil] 0.52 gram Capsule 0.52 g PO Q OTHER DAY RF: 0 ezetimibe [Zetia] 10 mg Tablet 10 mg PO QAM RF: 0 azelastine-fluticasone 137-50 mcg/spray [place],Non-Aerosol 1 spray INTRANASAL HS RF: 0 albuterol sulfate 2.5 mg /3 mL (0.083 %) Solution For Nebulization 2.5 mg INHALATION Q4H PRN (Reason: Wheezing) RF: 0 docusate sodium 100 mg Capsule 200 mg PO QAM RF: 0 albuterol sulfate [Ventolin HFA] 90 mcg/actuation Hfa Aerosol Inhaler 2 puff INHALATION Q4H PRN (Reason: Wheezing) RF: 0 sodium chloride [[place] Nasal] 0.65 % Aerosol,[place] 1 spray INTRANASAL DIRECTED PRN (Reason: Dry Nasal Passages) RF: 0 valacyclovir 1 gram Tablet 2,000 mg PO DAILY PRN (Reason: Cold Sores) RF: 0 cholecalciferol (vitamin D3) [Vitamin D3] 1,000 unit Capsule 2,000 unit PO QAM RF: 0 montelukast [Singulair] 10 mg Tablet 10 mg PO HS RF: 0 Align 4 mg Capsule 4 mg PO QAM RF: 0 diphenhydramine HCl [Benadryl Allergy] 25 mg Tablet 25 mg PO HS RF: 0 Theraworx Relief 1 applic topical DAILY PRN (Reason: calve cramps) RF: 0 Discontinued cetirizine-pseudoephedrine [Zyrtec-D] 5-120 mg Tablet Extended Release 12 Hr 1 tab PO QAM RF: 0 methylprednisolone 4 mg tablets,dose pack See Rx Instructions .ROUTE .COMPLEX Qty: 21 RF: 0 No Action aspirin [Aspir-81] 81 mg Tablet,Delayed Release (Dr/Ec) 162 mg PO DAILY PRN (Reason: Pain) RF: 0 acetaminophen [Tylenol Extra Strength] 500 mg Tablet 1,000 mg PO Q6H PRN (Reason: Pain) RF: 0 gabapentin 100 mg capsule 100 mg PO TID 20 Days Qty: 60 RF: 0 Discharge Orders: Discharge Order (Routine); Ordered 10/29/20 Ordered By: Eulogio Ceballos/Other Patient Handouts: Controlling Your Cholesterol, Controlling High Blood Pressure, High Cholesterol: Assessing Your Risk, DASH Plan Eat Heart Healthy Food, Triglycerides Admission Data Admit Date/Time: 10/28/20 09:07 Attending Provider: Eulogio Nagy Admit Provider: Eulogio Nagy Primary Care Provider: Wilma Martinez Other Providers: Eulogio Nagy ; Nabor Mosley ; [facility] ,[facility] Other Interventions: Discharge Summary Assessment (RN) Last Done: 10/29/20 16:15 Coding Level of Care Code D/C Day Management >30 mins Diagnoses Hypertensive emergency I16.1 Chest pain R07.9 Elevated troponin R77.8 Occipital headache R51.9 Hypertension I10 Hypertension type: unspecified Family history of coronary artery disease Z82.49 Hyperlipidemia E78.5 Pre-diabetes R73.03 Asthma, mild persistent J45.30 MARTY (obstructive sleep apnea) G47.33 Allergic rhinitis J30.9 Chronic dyspnea R06.09
--- NOTE | 2020-10-29 17:52 | XCELERA ---
[id number]
--- NOTE | 2020-10-29 17:55 | Electrocardiogram Report ---
Test Reason : Blood Pressure : / mmHG Vent. Rate : 070 BPM Atrial Rate : 070 BPM P-R Int : 136 ms QRS Dur : 072 ms QT Int : 392 ms P-R-T Axes : 058 013 044 degrees QTc Int : 423 ms Normal sinus rhythm Nonspecific ST abnormality Abnormal ECG When compared with ECG of 28-OCT-2020 10:08, (unconfirmed) No significant change was found Confirmed by Emmanuel Pat ([id number]) on 10/29/2020 5:55:13 PM Referred By: REFERRED SELF Confirmed By:Noel Pat
--- NOTE | 2020-10-29 17:58 | Electrocardiogram Report ---
Test Reason : Blood Pressure : / mmHG Vent. Rate : 057 BPM Atrial Rate : 057 BPM P-R Int : 146 ms QRS Dur : 072 ms QT Int : 452 ms P-R-T Axes : 051 012 050 degrees QTc Int : 439 ms Sinus bradycardia Otherwise normal ECG When compared with ECG of 28-OCT-2020 20:29, (unconfirmed) No significant change was found Confirmed by Emmanuel Pat ([id number]) on 10/29/2020 5:57:33 PM Referred By: REFERRED SELF Confirmed By:Noel Pat
--- NOTE | 2020-10-29 18:07 | Electrocardiogram Report ---
Test Reason : Blood Pressure : / mmHG Vent. Rate : 052 BPM Atrial Rate : 052 BPM P-R Int : 130 ms QRS Dur : 078 ms QT Int : 452 ms P-R-T Axes : 041 009 048 degrees QTc Int : 420 ms Sinus bradycardia Otherwise normal ECG When compared with ECG of 28-OCT-2020 07:22, No significant change was found Confirmed by Emmanuel Pat ([id number] on 10/29/2020 6:07:42 PM Referred By: REFERRED SELF Confirmed By:Noel Pat
== END 2020-10-29 18:08 | disposition home or self-care (01) | DRG 305 ==
LOC: ED 05:55 → 1E 09:07